=== PATIENT | female | born 1950 | race Caucasian/White ===

== ENCOUNTER → 2023-08-26 12:56 | Outpatient (CLI) | payer OTHER, SELFPAY ==
--- NOTE | 2023-08-26 16:59 | DI.RAD.S_ITS ---
PROCEDURE: XR HAND RT MIN 3V INDICATIONS: RIGHT HIP PAIN AND BOTH HAND PAIN. TECHNIQUE: 3 views of the hand(s) acquired. COMPARISON: None. FINDINGS: Bones: No fractures or dislocations. Severe degenerative changes of the 1st CMC and triscaphe joints. Severe degenerative changes of the 1st, 3rd, 4th and 5th distal interphalangeal joints with erosive changes and possible gullwing appearance. Mild degenerative changes of other interphalangeal joints. Carpal bones are normally aligned. No suspicious bony lesions. Decreased osseous mineralization. Soft tissues: No suspicious soft tissue calcifications. IMPRESSION: 1. Severe degenerative changes of the 1st CMC and triscaphe joint. 2. 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 Dictated by: Selvin Stallings M.D. on 08/26/2023 at 20:38 Approved by: Selvin Stallings M.D. on 08/26/2023 at 20:39
--- NOTE | 2023-08-26 16:59 | DI.RAD.S_ITS ---
PROCEDURE: XR HAND LT MIN 3V INDICATIONS: RIGHT HIP PAIN AND BOTH HAND PAIN TECHNIQUE: 3 views of the hand(s) acquired. COMPARISON: None. FINDINGS: Bones: No fractures or dislocations. Severe degenerative changes of the 1st carpometacarpal and triscaphe joints. Mild degenerative changes of the interphalangeal joints. Severe degenerative changes of the 5th DIP. Subchondral lucencies are seen. Carpal bones are normally aligned. No suspicious bony lesions. Soft tissues: No suspicious soft tissue calcifications. IMPRESSION: No acute fracture or dislocation. Severe degenerative changes of the 1st carpometacarpal and triscaphe joint. Mild interphalangeal joint degeneration, severe of the 5th DIP. Subchondral lucencies which may represent subchondral cystic changes versus erosive changes. 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 Dictated by: Selvin Stallings M.D. on 08/26/2023 at 20:36 Approved by: Selvin Stallings M.D. on 08/26/2023 at 20:38
--- NOTE | 2023-08-26 16:59 | DI.RAD.S_ITS ---
PROCEDURE: XR HIP W PEL IF DONE RT 2V INDICATIONS: RIGHT HIP PAIN AND BOTH HAND PAIN TECHNIQUE: AP pelvis with lateral view(s) of the right hip(s). COMPARISON: None. FINDINGS: Bones: No fractures or dislocations. Moderate degenerative changes of the bilateral hips. Degenerative changes of the visualized lower lumbar spine and pubic symphysis. Pelvic ring appears intact. No suspicious bony lesions. Soft tissues: The visualized bowel gas pattern is normal. No suspicious soft tissue calcifications. IMPRESSION: Moderate degenerative changes of the bilateral hips. No acute osseous abnormalities. Dictated by: Selvin Stallings M.D. on 08/26/2023 at 20:35 Approved by: Selvin Stallings M.D. on 08/26/2023 at 20:36
--- NOTE | 2023-08-26 16:59 | DI.RAD.S_ITS ---
PROCEDURE: XR LUMBAR SPINE 2-3V INDICATIONS: RIGHT HIP PIAN AND BOTH HAND PAIN TECHNIQUE: 3 views of the lumbar spine were acquired. COMPARISON: None. FINDINGS: Bones: 5 [id number] vertebrae are present. Grade 1 anterolisthesis of L2 on L3, L3 on L4 and grade 2 anterolisthesis of L4 on L5. Mild dextrocurvature of the lumbar spine. Decreased osseous mineralization. There is multilevel facet arthropathy, worse at L4-5 and L5-S1. Multilevel disc height loss with degenerative endplate changes and spurring is present. This is severe at L5-S1. No vertebral body compression fractures. No suspicious bony lesions. Soft tissues: Overlying bowel gas pattern is normal. No suspicious soft tissue calcifications. Atherosclerotic vascular calcifications. IMPRESSION: Multilevel degenerative changes of the lumbar spine as described above, most severe at L5-S1. Multilevel anterolisthesis. Dictated by: Selvin Stallings M.D. on 08/26/2023 at 20:33 Approved by: Selvin Stallings M.D. on 08/26/2023 at 20:35
== END ==
PROVIDERS: PCP Family Medicine; Referring Provider Family Medicine; Visit Provider Family Medicine
DX: M47.817 Spondylosis without myelopathy or radiculopathy, lumbosacral region (principal); M47.816 Spondylosis without myelopathy or radiculopathy, lumbar region; M43.16 Spondylolisthesis, lumbar region; M19.041 Primary osteoarthritis, right hand; M19.042 Primary osteoarthritis, left hand; M25.551 Pain in right hip; M54.9 Dorsalgia, unspecified; G89.29 Other chronic pain
CPT/HCPCS: 72100; 73130; 73502

== ENCOUNTER → 2023-11-10 16:04 | Outpatient (CLI) | payer OTHER, SELFPAY ==
--- NOTE | 2023-11-10 16:06 | DI.RAD.S_ITS ---
PROCEDURE: XR SACRUM COCCYX MIN 2V INDICATIONS: Fall, chronic sacral pain x1 year TECHNIQUE: 3 views of the sacrum and coccyx acquired. COMPARISON: None. FINDINGS: Bones: No fractures or dislocations. No suspicious bony lesions. Degenerative disc and facet disease involves the inferior lumbar spine. Soft tissues: Visualized bowel gas pattern is normal. No suspicious soft tissue densities. IMPRESSION: Degenerative disc and facet disease involving the lower lumbar spine; otherwise normal appearance of the sacrum. If pain persist with conservative management, consider cross-sectional imaging such as CT . Dictated by: Ken BLAS Interpreted: Vianney Harding MD on 11/10/2023 at 16:40 Transcribed by: ZEUS on 11/10/2023 at 16:41 Approved by: Vianney Harding M.D. on 11/10/2023 at 17:26
== END ==
PROVIDERS: Family Provider Family Medicine; PCP Family Medicine; Referring Provider Family Medicine; Visit Provider Family Medicine
DX: M51.36 Other intervertebral disc degeneration, lumbar region (principal); M47.816 Spondylosis without myelopathy or radiculopathy, lumbar region; M53.3 Sacrococcygeal disorders, not elsewhere classified; G89.29 Other chronic pain
CPT/HCPCS: 72220

== ENCOUNTER 2023-11-17 12:13 | Day surgery (SDC) | payer OTHER, SELFPAY ==
[2023-11-17] VITALS (7 sets, daily range): BP systolic 110–147; BP diastolic 59–82; PULSE 58–79; RESP 12–18; TEMP 36.6–36.7; O2SAT 93–97
--- NOTE | 2023-11-17 | PATH_ITS ---
[facility] Accession Number: [id number] No. of containers..01 Tissue . 01 Material submitted: . colon - SIGMOID POLYP . 01 Diagnosis: Sigmoid Colon Polyp: Colonic mucosa with prominent benign lymphoid aggregate. Negative for serrated lesion, dysplasia, or malignancy. [facility] 11/22/2023 1059 Local . 01 Electronically signed: . Cory Cervantes MD, PhD, Pathologist NPI- [id number] . 01 Gross description: . SIGMOID POLYP: Received in formalin is 1 fragment(s) of watkins, soft tissue measuring 0.3 x 0.2 x 0.1 cm submitted entirely in 1 cassette(s) /AAY 11/19/2023 0529 Local . 01 Pathologist provided ICD-10: K63.5 . 01 CPT . 565939 Specimen Comment: A courtesy copy of this report has been sent to [phone] Performed at: 01 [facility] [address] [place] [address] [address] [facility], [place], [place] [id number] MD Rigoberto Valdes MD Phone: [phone]
[2023-11-17] MEDS: LACTATED RINGERS 1,000 ML 42 ML IV (12:39)
--- NOTE | 2023-11-17 12:44 | P.HP_ITS ---
History of Present Illness History of Present Illness Date Patient Seen: 11/17/23 Time Patient Seen: 12:44 Chief complaint: Screening Colonoscopy Narrative: Dominique is a 73-year-old woman who is here for colonoscopy. Her last 1 was about 20 years ago. No family history of colon cancer. COUNT INCLUDES THE [facility] Medical History (Updated 11/17/23 @ 12:45 by Wan Perry MD) Hearing decreased Allergies Shoulder pain Chronic back pain Carpal tunnel syndrome Mumps Chicken pox Tinnitus Ovarian cyst Hemorrhoid Depression Surgical History (Updated 08/17/23 @ 18:20 by Sabrina Carlton) Anesthesia History of carpal tunnel release History of oophorectomy History of back surgery History of basal cell carcinoma Family History (Updated 08/17/23 @ 18:20 by Sabrina Carlton) Father History of heart disease Mother Cancer Social History Smoking Status: Never smoker alcohol intake: current Meds Home Medications and Allergies Home Medications Medication Instructions Recorded Confirmed Type lisinopril 10 mg tablet 10 mg PO DAILY Hpertension #90 tabs 07/06/23 11/17/23 Rx meloxicam 15 mg tablet 15 mg PO DAILY #90 tabs 07/06/23 11/17/23 Rx fluoxetine 40 mg capsule 40 mg PO DAILY 11/10/23 11/17/23 History Allergies Allergy/AdvReac Type Severity Reaction Status Date / Time No Known Drug Allergies Allergy Verified 11/17/23 12:25 Exam Vital Signs (past 8 hours): - 11/17/23 12:29 Temperature 98.0 F Pulse Rate 79 Respiratory Rate 12 Blood Pressure 133/82 Pulse Oximetry 95 Oxygen Delivery Method Room Air Oxygen Delivery Method Room Air Const Orientation: alert and awake Resp Effort & Inspection: normal respiratory effort Assessment & Plan Assessment and plan (1) Colon cancer screening: Status: Acute Plan We reviewed the risks and benefits of colonoscopy for colon cancer screening and she would like to proceed.
--- NOTE | 2023-11-17 13:31 | PM.OP.COLON ---
Operative Date/Time/Diagnoses Date of procedure: 11/17/23 Time of procedure: 13:31 Pre-op diagnosis: Colon cancer screening Post-op diagnosis: same Procedure & Clinicians Study performed: Colonoscopy Same procedure as scheduled: Yes Surgeon: Wan Perry Procedure Notes Procedure in detail: Surgeon: Wan Perry MD Anesthesia: Rancho Diaz MD Procedure: The patient was brought to the endoscopy suite, placed in left lateral decubitus position. The patient was connected to monitoring devices. A time-out was performed. Sedation was administered. Once the patient was adequately sedated, a digital rectal exam was performed and was normal. The scope was then inserted and advanced to the cecum where the appendiceal orifice was identified and photographed. The scope was then slowly withdrawn over greater than 6 minutes. The mucosa was thoroughly inspected. There were scattered sigmoid diverticula. There was a 2 mm polyp in the sigmoid colon removed with a cold snare. The scope was retroflexed in the rectum. Internal hemorrhoids were noted. The scope was straightened and removed. The patient was awakened and brought to recovery. Scope withdrawal time: 9 minutes Sedation time: 17 minutes EBL: 2 mL Findings: Scattered sigmoid diverticulosis, small sigmoid polyp and internal hemorrhoids Post-procedure Disposition: PACU
== END 2023-11-17 14:13 | disposition home or self-care (01) ==
PROVIDERS: Family Provider Family Medicine; PCP Family Medicine; Referring Provider Surgery; Visit Provider Surgery
PROC: 0DJD8ZZ Inspection of Lower Intestinal Tract, Via Natural or Artificial Opening Endoscopic (ICD-10-PCS; CPT 45378; principal; 2023-11-17 13:15)
DX: Z12.11 Encounter for screening for malignant neoplasm of colon (principal); K57.30 Diverticulosis of large intestine without perforation or abscess without bleeding; K64.8 Other hemorrhoids; K63.5 Polyp of colon
CPT/HCPCS: 45385; J2250; J2704

== ENCOUNTER 2024-01-06 13:45 | Outpatient (RCR) | payer MEDICARE, OTHER, SELFPAY ==
--- NOTE | 2023-11-07 18:23 | PT.OIE ---
Current Diagnoses Other chronic pain (11/07/23) Dorsalgia, unspecified (11/07/23) Difficulty in walking, not elsewhere classified (11/07/23) Abnormal posture (11/07/23) Weakness (11/07/23) Past Medical History (Last Updated 08/17/23 @ 18:20 by Sabrina Carlton) Allergies Carpal tunnel syndrome Chicken pox Chronic back pain Depression Hearing decreased Hemorrhoid Mumps Ovarian cyst Shoulder pain Tinnitus Past Surgical History (Last Updated 08/17/23 @ 18:20 by Sabrina Carlton) Anesthesia History of back surgery History of basal cell carcinoma History of carpal tunnel release History of oophorectomy Visit Care Team Role Provider Type Tomy Osborne MD Attending Provider Physician Family Provider Primary Care Provider Referring Provider Specialty: Family Practice Obstetrics Address: [address] [place] [address], [id number] Email: [email or web address] Physical Therapy Initial Evaluation PT-OP-A Visit Information Start: 10/26/23 10:52 Freq: Status: Active Protocol: Document 11/07/23 16:49 [facility] (Rec: 11/07/23 18:23 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 (Rec: 11/07/23 18:23 [facility] [id number]) Current Condition History of Current Condition History of Current Condition Pt reports she is having pain down legs and in back. She had a MRI recently that showed some stenosis and nerve impingment. She had one back surgery 27 years ago and another 12-15 years ago. She reports they were never had fusions. She doesn't remember what the surgeries were except to dec the stenosis. Pt report no hx of back injury. thinks may be partially hereditary. Pt reports she has been having a tingling feeling in R leg starting from R buttocks and goes into ant leg down to toes. Pt reports sliding down icy steps and fell Sep 2022. tingling and back pain has gotten worse in past 5-6 months. It keeps gradually getting worse. 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 Haven 't been able to work as much and only doing 3 days a week d /t pain. Typically works >40 hours a week. Can hardly walk down the street w/o cane. Prior to this flare up, was walking a couple miles most days. They are looking at doing surgery andbut pt wants to try PT first. Pt has had shots in the past in back but it hasn't really helped (that was prior to last surgery). Pt reports on days off, lays on L side to dec pain. Has gained weight past 2 years since loss of . Prior Treatments and Tests Xray:IMPRESSION: Multilevel degenerative changes of the lumbar spine as described above, most severe at L5-S1. Multilevel anterolisthesis. Treatment Goals Patient/Caregiver Goals Be able to walk again (go for walks, walk 2 blocks to work, do work); be able to work 40 hours a week as needed PT-OP-C Subjective Start: 10/26/23 10:52 Freq: Status: Active Protocol: Document 11/07/23 16:49 [facility] (Rec: 11/07/23 18:23 [facility] [id number]) Patient Questionnaires Oswestry Low Back Index Oswestry Score 23/50;46% OP-PT Pain Assessment Location LB Pain Location Details R SI, sacrum, buttocks to ant thigh, lower leg to toes dorsum Description Radiating,Shooting,Tingling, With Movement Frequency Frequent Pain Aggravating Factors Activity,Standing,Sitting, Walking,Lifting Other Pain Alleviating Factors L S/L PT-OP-D Balance Start: 10/26/23 10:52 Freq: Status: Active Protocol: Document 11/07/23 16:49 [facility] (Rec: 11/07/23 18:23 [facility] [id number]) Balance Tests Single Limb Standing Single Limb- Right unable to stand on RLE PT-OP-F Manual Assessment Start: 10/26/23 10:52 Freq: Status: Active Protocol: Document 11/07/23 16:49 [facility] (Rec: 11/07/23 18:23 [facility] [id number]) Manual Assessments Soft Tissue Assessment Soft Tissue Mobility Assessment R>L QL tightness & glute tightness PT-OP-J Posture/Palpation/Skin Start: 10/26/23 10:52 Freq: Status: Active Protocol: Document 11/07/23 16:49 [facility] (Rec: 11/07/23 18:23 [facility] [id number]) Posture Evaluation Comments Posture Comments rotated L; R pelvic shear, fwd flexed torso, inc kyphosis, genu recurvatum B, R iliac crest higher, equal greater trochanters PT-OP-K Range of Motion Start: 10/26/23 10:52 Freq: Status: Active Protocol: Document 11/07/23 16:49 [facility] (Rec: 11/07/23 18:23 [facility] [id number]) Lumbar Spine Range of Motion Lumbar Spine Active Percentage Flexion 5 Extension 5 Rotation Left 40 Rotation Right 40 Lateral Flexion Left 60 Lateral Flexion Right 40 Comments pain R SB & w/rot-goes down leg; pain ext PT-OP-L Special Tests Start: 10/26/23 10:52 Freq: Status: Active Protocol: Document 11/07/23 16:49 [facility] (Rec: 11/07/23 18:23 [facility] [id number]) Special Tests Lumbar Spine Special Tests Straight Leg Raise Test Results R mild tension Slump Test Results R positive Jose Miguel Test Results B positive R>L PT-OP-M Strength Start: 10/26/23 10:52 Freq: Status: Active Protocol: Document 11/07/23 16:49 [facility] (Rec: 11/07/23 18:23 [facility] [id number]) Hip Strength Hip Manual Muscle Testing Right Flexion (L2) 4- Good- External Rotation 3+ Fair+ Internal Rotation 3+ Fair+ Left Flexion (L2) 4 Good External Rotation 3+ Fair+ Internal Rotation 4- Good- Knee Strength Knee Manual Muscle Testing Right Extension (L3) 5 Normal Left Extension (L3) 5 Normal Ankle/Foot Strength Ankle and Foot Manual Muscle Testing Right Dorsiflexion (L4) 4+ Good+ Plantarflexion (S1) 4+ Good+ Left Dorsiflexion (L4) 5 Normal Plantarflexion (S1) 5 Normal Comments PF tested seated B PT-OP-Q Treatments Start: 10/26/23 10:52 Freq: Status: Active Protocol: Document 11/07/23 16:49 [facility] (Rec: 11/07/23 18:23 [facility] [id number]) Therapeutic Exercises Supine Exercises stretch Supine Exercise Name jose miguel test (knee to chest, opp knee straight) Side bilateral Reps/Minutes 30 secx2 Comments also attempted knee to opp chest but painful on R so stopped sciatic n glide Side bilateral Reps/Minutes 15 Self-Care/Home Management Treatment Education Other Education 20 min:edu on coccyx affect on dural tension, fascial tension & pain w/sitting. Set up pt on pillows w/coccyx off and pt reported relief in sitting-edu to get a cushion w /cut out for tail bone. edu on spinal anatomy and openin/ closing of foramina w/flex/ext , discussed how posture can be affecting this along w/pt pelvis position. edu how inflamation could be affecting n pain and to try icing and discussed how diet can affect this. PT-OP-T Assessment and Plan Start: 10/26/23 10:52 Freq: Status: Active Protocol: Document 11/07/23 16:49 [facility] (Rec: 11/07/23 18:23 [facility] [id number]) Physical Therapy Assessment Rehab Potential Rehabilitation Potential Good Evaluation Complexity Number of Personal Factors/Comorbidities 3 or More Number of Body Systems Impaired 4 or More Clinical Presentation at Evaluation Evolving Impairments Impairments Activity Tolerance,Balance, Functional Activities, Functional Mobility,Gait,Pain, Posture,ROM,Soft Tissue Mobility,Strength,Transfers Other Concerns Barriers to Rehabilitation pt has higher copay fo $35/ visit so will not be able to attend 2x/week. pt cont to work as needs the finances so unable to rest Goals ROM Short Term Goal (STG) Pt will report no inc difficulty/pain w/donning/ doffing shoes and socks STG Duration 12/23/23 Director Of Global Talent Goal (LTG) Pt will have at least 75% of full range of Lumbar spine mobility in order to allow greater ease in daily activityw/o inc pain LTG Duration 01/30/24 strength Short Term Goal (STG) pt will be indep w/HEP STG Duration 12/20/23 Senior Care Goal (LTG) pt will score at least 4+/5 on all BLE LE MMT and at least 3 /5 on LPM and be able to do SLS for at least 10 sec B to show improved stability to inc ease w/work and ADLs. LTG Duration 01/30/24 activities Short Term Goal (STG) Pt will be able to sit as needed and stand as needed w/o inc pain greater than 3/10 STG Duration 12/10/23 Director Of Global Talent Goal (LTG) Pt will be able to work 40 hours as needed and be able to walk for 1 mile w/o inc pain greater than 2/10. LTG Duration 01/30/24 SALOMÓN Impairment 23/50 Short Term Goal (STG) Pt will improve SALOMÓN score to no greater than 16/50 to show improved functional ability. STG Duration 12/10/23 Senior Care Goal (LTG) Pt will improve SALOMÓN score to no greater than 6/50 to show improved functional ability. LTG Duration 01/30/24 Assessment Summary Assessment Pt presents w/R SI and buttocks pain (centering at sacrum and coccyx) with referral of pain into ant thigh, vann and dorsum of foot that has pain and tingling sensations. This started about 5 months ago with cont worsening symptoms, but does have a history of LBP, with history of 2 surgeries in the past 30 years. She is only comfortable in L s/l and has inc pain w/all other positions . 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 She did have a fall about 1 year ago down steps where she fell onto her buttocks, which is likely related as pt has significant pelvic shear in standing and positive for R sided neural tension, which with pain location is indicitive of coccyx dysfunction. She is unable to stand up straight liekly related to lack of ability to ext in lumbar spine and significant R>L ant hip restrictions. Pt would benefit from skilled PT to address these deficits and dc pain. Physical Therapy Plan Frequency and Duration Frequency of Treatment 1-2x/wk Duration of treatment (weeks) 12 Plan of Care Start Date 11/07/23 Plan of Care End Date 01/30/24 Therapeutic Interventions Therapeutic Interventions Balance Training,Gait Training ,Home Exercise Program,Joint Mobilizations,Manual Therapy, Neuromuscular Re-education, Orthotic/Prosthetic Management ,Patient/Caregiver Education, Self-Care/Home Management,Soft Tissue Mobilization,Taping, Therapeutic Activities, Therapeutic Exercises Modalities Cold Pack/Ice Massage,Electric Stimulation,Hot Packs, Traction- Mechanical, Ultrasound Next Visit Focus/Plan Next Note Type Treatment Note Next Visit Plan manual: coccyx mobs, hip mobs, innominate mobs; STM to QL, ES, glutes, TFL, hip flexors ther ex: review exercises; train pelvic tilts, SL isometric flex core, supine hip ER w/band Edu: discuss anti-inflamatory diet
--- NOTE | 2023-11-07 18:23 | PT.OPPOC ---
Physical, Occupational & Speech Therapy At [facility] Current Diagnoses Other chronic pain (11/07/23) Dorsalgia, unspecified (11/07/23) Difficulty in walking, not elsewhere classified (11/07/23) Abnormal posture (11/07/23) Weakness (11/07/23) Visit Care Team Role Provider Type Tomy Osborne MD Attending Provider Physician Family Provider Primary Care Provider Referring Provider Specialty: Family Practice Obstetrics Address: [address] [place] [address], [facility] Email: [email or web address] Plan Of Care PT-OP-T Assessment and Plan Start: 10/26/23 10:52 Freq: Status: Active Protocol: Document 11/07/23 16:49 [facility] (Rec: 11/07/23 18:23 [facility] [id number]) Physical Therapy Assessment Rehab Potential Rehabilitation Potential Good Evaluation Complexity Number of Personal Factors/Comorbidities 3 or More Number of Body Systems Impaired 4 or More Clinical Presentation at Evaluation Evolving Impairments Impairments Activity Tolerance,Balance, Functional Activities, Functional Mobility,Gait,Pain, Posture,ROM,Soft Tissue Mobility,Strength,Transfers Other Concerns Barriers to Rehabilitation pt has higher copay fo $35/ visit so will not be able to attend 2x/week. pt cont to work as needs the finances so unable to rest Goals ROM Short Term Goal (STG) Pt will report no inc difficulty/pain w/donning/ doffing shoes and socks STG Duration 12/23/23 Professor Of Pathology Goal (LTG) Pt will have at least 75% of full range of Lumbar spine mobility in order to allow greater ease in daily activityw/o inc pain LTG Duration 01/30/24 strength Short Term Goal (STG) pt will be indep w/HEP STG Duration 12/20/23 Snf Goal (LTG) pt will score at least 4+/5 on all BLE LE MMT and at least 3 /5 on LPM and be able to do SLS for at least 10 sec B to show improved stability to inc ease w/work and ADLs. LTG Duration 01/30/24 activities Short Term Goal (STG) Pt will be able to sit as needed and stand as needed w/o inc pain greater than 3/10 STG Duration 12/10/23 Snf Goal (LTG) Pt will be able to work 40 hours as needed and be able to walk for 1 mile w/o inc pain greater than 2/10. LTG Duration 01/30/24 SALOMÓN Impairment 23/50 Short Term Goal (STG) Pt will improve SALOMÓN score to no greater than 16/50 to show improved functional ability. STG Duration 12/10/23 Snf Goal (LTG) Pt will improve SALOMÓN score to no greater than 6/50 to show improved functional ability. LTG Duration 01/30/24 Assessment Summary Assessment Pt presents w/R SI and buttocks pain (centering at sacrum and coccyx) with referral of pain into ant thigh, vann and dorsum of foot that has pain and tingling sensations. This started about 5 months ago with cont worsening symptoms, but does have a history of LBP, with history of 2 surgeries in the past 30 years. She is only comfortable in L s/l and has inc pain w/all other positions . 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 She did have a fall about 1 year ago down steps where she fell onto her buttocks, which is likely related as pt has significant pelvic shear in standing and positive for R sided neural tension, which with pain location is indicitive of coccyx dysfunction. She is unable to stand up straight liekly related to lack of ability to ext in lumbar spine and significant R>L ant hip restrictions. Pt would benefit from skilled PT to address these deficits and dc pain. Physical Therapy Plan Frequency and Duration Frequency of Treatment 1-2x/wk Duration of treatment (weeks) 12 Plan of Care Start Date 11/07/23 Plan of Care End Date 01/30/24 Therapeutic Interventions Therapeutic Interventions Balance Training,Gait Training ,Home Exercise Program,Joint Mobilizations,Manual Therapy, Neuromuscular Re-education, Orthotic/Prosthetic Management ,Patient/Caregiver Education, Self-Care/Home Management,Soft Tissue Mobilization,Taping, Therapeutic Activities, Therapeutic Exercises Modalities Cold Pack/Ice Massage,Electric Stimulation,Hot Packs, Traction- Mechanical, Ultrasound Next Visit Focus/Plan Next Note Type Treatment Note Next Visit Plan manual: coccyx mobs, hip mobs, innominate mobs; STM to QL, ES, glutes, TFL, hip flexors ther ex: review exercises; train pelvic tilts, SL isometric flex core, supine hip ER w/band Edu: discuss anti-inflamatory diet Plan of Care Dates Plan of Care Start Date 11/07/23 Plan of Care End Date 01/30/24 Electronically Signed by: France Quiroga, PT 11/07/23 0469 If you are in agreement with this Plan of Care, please return a signed and dated copy. I have reviewed this Plan of Care and certify that the skilled therapy services above are required to meet the patient?s needs. Physician Signature Date Printed Name and Credentials Clinical Instructor Signature Printed Name and Credentials
--- NOTE | 2023-11-10 18:09 | PT.OTN ---
Current Diagnoses Other chronic pain (11/10/23) Dorsalgia, unspecified (11/10/23) Difficulty in walking, not elsewhere classified (11/10/23) Abnormal posture (11/10/23) Weakness (11/10/23) Physical Therapy Treatment Note PT-OP-A Visit Information Start: 10/26/23 10:52 Freq: Status: Active Protocol: Document 11/10/23 16:49 [facility] (Rec: 11/10/23 18:09 [facility] [id number]) Out-Patient Physical Therapy Visit Information Visit Information Visit Type Treatment Note Visit Note 11/19 Visit Start Time 16:50 Visit Stop Time 17:45 Visit Number 2 Number of TRACK WALKER Visits 0 PT-OP-B Current Condition Start: 10/26/23 10:52 Freq: Status: Active Protocol: Document 11/07/23 16:49 [facility] (Rec: 11/07/23 18:23 [facility] [id number]) Current Condition History of Current Condition History of Current Condition Pt reports she is having pain down legs and in back. She had a MRI recently that showed some stenosis and nerve impingment. She had one back surgery 27 years ago and another 12-15 years ago. She reports they were never had fusions. She doesn't remember what the surgeries were except to dec the stenosis. Pt report no hx of back injury. thinks may be partially hereditary. Pt reports she has been having a tingling feeling in R leg starting from R buttocks and goes into ant leg down to toes. Pt reports sliding down icy steps and fell Sep 2022. tingling and back pain has gotten worse in past 5-6 months. It keeps gradually getting worse. 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 Haven 't been able to work as much and only doing 3 days a week d /t pain. Typically works >40 hours a week. Can hardly walk down the street w/o cane. Prior to this flare up, was walking a couple miles most days. They are looking at doing surgery andbut pt wants to try PT first. Pt has had shots in the past in back but it hasn't really helped (that was prior to last surgery). Pt reports on days off, lays on L side to dec pain. Has gained weight past 2 years since loss of . Prior Treatments and Tests Xray:IMPRESSION: Multilevel degenerative changes of the lumbar spine as described above, most severe at L5-S1. Multilevel anterolisthesis. Treatment Goals Patient/Caregiver Goals Be able to walk again (go for walks, walk 2 blocks to work, do work); be able to work 40 hours a week as needed PT-OP-C Subjective Start: 10/26/23 10:52 Freq: Status: Active Protocol: Document 11/07/23 16:49 [facility] (Rec: 11/07/23 18:23 [facility] [id number]) Patient Questionnaires Oswestry Low Back Index Oswestry Score 23/50;46% OP-PT Pain Assessment Location LB Pain Location Details R SI, sacrum, buttocks to ant thigh, lower leg to toes dorsum Description Radiating,Shooting,Tingling, With Movement Frequency Frequent Pain Aggravating Factors Activity,Standing,Sitting, Walking,Lifting Other Pain Alleviating Factors L S/L PT-OP-D Balance Start: 10/26/23 10:52 Freq: Status: Active Protocol: Document 11/07/23 16:49 [facility] (Rec: 11/07/23 18:23 [facility] [id number]) Balance Tests Single Limb Standing Single Limb- Right unable to stand on RLE PT-OP-F Manual Assessment Start: 10/26/23 10:52 Freq: Status: Active Protocol: Document 11/07/23 16:49 [facility] (Rec: 11/07/23 18:23 [facility] [id number]) Manual Assessments Soft Tissue Assessment Soft Tissue Mobility Assessment R>L QL tightness & glute tightness PT-OP-J Posture/Palpation/Skin Start: 10/26/23 10:52 Freq: Status: Active Protocol: Document 11/07/23 16:49 [facility] (Rec: 11/07/23 18:23 [facility] [id number]) Posture Evaluation Comments Posture Comments rotated L; R pelvic shear, fwd flexed torso, inc kyphosis, genu recurvatum B, R iliac crest higher, equal greater trochanters PT-OP-K Range of Motion Start: 10/26/23 10:52 Freq: Status: Active Protocol: Document 11/07/23 16:49 [facility] (Rec: 11/07/23 18:23 [facility] [id number]) Lumbar Spine Range of Motion Lumbar Spine Active Percentage Flexion 5 Extension 5 Rotation Left 40 Rotation Right 40 Lateral Flexion Left 60 Lateral Flexion Right 40 Comments pain R SB & w/rot-goes down leg; pain ext PT-OP-L Special Tests Start: 10/26/23 10:52 Freq: Status: Active Protocol: Document 11/07/23 16:49 [facility] (Rec: 11/07/23 18:23 [facility] [id number]) Special Tests Lumbar Spine Special Tests Straight Leg Raise Test Results R mild tension Slump Test Results R positive Jose Miguel Test Results B positive R>L PT-OP-M Strength Start: 10/26/23 10:52 Freq: Status: Active Protocol: Document 11/07/23 16:49 [facility] (Rec: 11/07/23 18:23 [facility] [id number]) Hip Strength Hip Manual Muscle Testing Right Flexion (L2) 4- Good- External Rotation 3+ Fair+ Internal Rotation 3+ Fair+ Left Flexion (L2) 4 Good External Rotation 3+ Fair+ Internal Rotation 4- Good- Knee Strength Knee Manual Muscle Testing Right Extension (L3) 5 Normal Left Extension (L3) 5 Normal Ankle/Foot Strength Ankle and Foot Manual Muscle Testing Right Dorsiflexion (L4) 4+ Good+ Plantarflexion (S1) 4+ Good+ Left Dorsiflexion (L4) 5 Normal Plantarflexion (S1) 5 Normal Comments PF tested seated B PT-OP-Q Treatments Start: 10/26/23 10:52 Freq: Status: Active Protocol: Document 11/10/23 16:49 [facility] (Rec: 11/10/23 18:09 [facility] [id number]) Therapeutic Exercises Supine Exercises isometric Supine Exercise Name SL flex isometric Side bilateral Reps/Minutes 30 sec ea pelvic tilts Reps/Minutes 10 Comments cues controlled motion stretch Supine Exercise Name jose miguel test (knee to chest, opp knee straight) Side bilateral Reps/Minutes 1 min ea sciatic n glide Side bilateral Reps/Minutes 15 Sidelying Exercises clamshells Side bilateral Reps/Minutes 15 Therapeutic Activity Therapeutic Activity log roll Reps/Minutes 5 min Comments rolling in bed and in/out of bed sleep position Reps/Minutes 4 min Comments s/l sleep position w/pillow btwn knees for support and options for partial s/l w/ props in front Manual Therapy Treatment Soft Tissue Mobilization hip flexor Body Location R iliacus Mobilization Type Sustained Pressure Intensity/Depth Moderate Body Position Supine LE Body Location ITB, TFL, VL, HS Mobilization Type Myofascial Release,Rolling Intensity/Depth Moderate Body Position Hooklying Comments w/hip IR/ER Joint Mobilizations hip Joint free the ball ER FM Body Position Hooklying PT-OP-R Modalities Start: 10/26/23 10:52 Freq: Status: Active Protocol: Document 11/10/23 16:49 [facility] (Rec: 11/10/23 18:09 [facility] [id number]) Hot Pack/Cold Pack Treatment Cold Pack Location LB and R hip Patient Position Sidelying PT-OP-T Assessment and Plan Start: 10/26/23 10:52 Freq: Status: Active Protocol: Document 11/10/23 16:49 [facility] (Rec: 11/10/23 18:09 [facility] [id number]) Physical Therapy Assessment Goals ROM Short Term Goal (STG) Pt will report no inc difficulty/pain w/donning/ doffing shoes and socks STG Duration 12/23/23 Care Home Goal (LTG) Pt will have at least 75% of full range of Lumbar spine mobility in order to allow greater ease in daily activityw/o inc pain LTG Duration 01/30/24 strength Short Term Goal (STG) pt will be indep w/HEP STG Duration 12/20/23 Selector Packer Goal (LTG) pt will score at least 4+/5 on all BLE LE MMT and at least 3 /5 on LPM and be able to do SLS for at least 10 sec B to show improved stability to inc ease w/work and ADLs. LTG Duration 01/30/24 activities Short Term Goal (STG) Pt will be able to sit as needed and stand as needed w/o inc pain greater than 3/10 STG Duration 12/10/23 Selector Packer Goal (LTG) Pt will be able to work 40 hours as needed and be able to walk for 1 mile w/o inc pain greater than 2/10. LTG Duration 01/30/24 SALOMÓN Impairment 23/50 Short Term Goal (STG) Pt will improve SALOMÓN score to no greater than 16/50 to show improved functional ability. STG Duration 12/10/23 Care Home Goal (LTG) Pt will improve SALOMÓN score to no greater than 6/50 to show improved functional ability. LTG Duration 01/30/24 Assessment Summary Assessment Pt did well with exercises w/o c/o pain today and noted much dec pain when trained on log roll mechanics for in/out of bed. She did well with HEP from last session w/min cues needed. Improved R hip ER w/ manual treatment. Physical Therapy Plan Frequency and Duration Frequency of Treatment 1-2x/wk Duration of treatment (weeks) 12 Plan of Care Start Date 11/07/23 Plan of Care End Date 01/30/24 Next Visit Focus/Plan Next Note Type Treatment Note Next Visit Plan manual: coccyx mobs, hip mobs, innominate mobs; STM to QL, ES, glutes, TFL, hip flexors & quads ther ex: review exercises: pelvic tilts, SL isometric flex core, clamshell Advance as able
--- NOTE | 2023-11-18 12:42 | PT.OTN ---
Current Diagnoses Other chronic pain (11/18/23) Dorsalgia, unspecified (11/18/23) Difficulty in walking, not elsewhere classified (11/18/23) Abnormal posture (11/18/23) Weakness (11/18/23) Physical Therapy Treatment Note PT-OP-A Visit Information Start: 10/26/23 10:52 Freq: Status: Active Protocol: Document 11/18/23 09:43 [facility] (Rec: 11/18/23 10:37 [facility] [id number]) Out-Patient Physical Therapy Visit Information Visit Information Visit Type Treatment Note Visit Note 12/17 Visit Start Time 09:45 Visit Stop Time 10:30 Visit Number 3 Number of SENIOR STAFF CONSULTANT Visits 1 PT-OP-B Current Condition Start: 10/26/23 10:52 Freq: Status: Active Protocol: Document 11/07/23 16:49 [facility] (Rec: 11/07/23 18:23 [facility] [id number]) Current Condition History of Current Condition History of Current Condition Pt reports she is having pain down legs and in back. She had a MRI recently that showed some stenosis and nerve impingment. She had one back surgery 27 years ago and another 12-15 years ago. She reports they were never had fusions. She doesn't remember what the surgeries were except to dec the stenosis. Pt report no hx of back injury. thinks may be partially hereditary. Pt reports she has been having a tingling feeling in R leg starting from R buttocks and goes into ant leg down to toes. Pt reports sliding down icy steps and fell Sep 2022. tingling and back pain has gotten worse in past 5-6 months. It keeps gradually getting worse. 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 Haven 't been able to work as much and only doing 3 days a week d /t pain. Typically works >40 hours a week. Can hardly walk down the street w/o cane. Prior to this flare up, was walking a couple miles most days. They are looking at doing surgery andbut pt wants to try PT first. Pt has had shots in the past in back but it hasn't really helped (that was prior to last surgery). Pt reports on days off, lays on L side to dec pain. Has gained weight past 2 years since loss of . Prior Treatments and Tests Xray:IMPRESSION: Multilevel degenerative changes of the lumbar spine as described above, most severe at L5-S1. Multilevel anterolisthesis. Treatment Goals Patient/Caregiver Goals Be able to walk again (go for walks, walk 2 blocks to work, do work); be able to work 40 hours a week as needed PT-OP-C Subjective Start: 10/26/23 10:52 Freq: Status: Active Protocol: Document 11/18/23 09:43 [facility] (Rec: 11/18/23 10:37 [facility] [id number]) OP-PT Subjective Patient Comments Patient Comments Dominique reports 6/10 back pain on right side which she thinks was increased by 2-day prep for colonoscopy and procedure lying on her L side yesterday. She iced her R hip Samina when her leg was really bothering her and it seemed to help. PT-OP-D Balance Start: 10/26/23 10:52 Freq: Status: Active Protocol: Document 11/07/23 16:49 [facility] (Rec: 11/07/23 18:23 [facility] [id number]) Balance Tests Single Limb Standing Single Limb- Right unable to stand on RLE PT-OP-F Manual Assessment Start: 10/26/23 10:52 Freq: Status: Active Protocol: Document 11/07/23 16:49 [facility] (Rec: 11/07/23 18:23 [facility] [id number]) Manual Assessments Soft Tissue Assessment Soft Tissue Mobility Assessment R>L QL tightness & glute tightness PT-OP-J Posture/Palpation/Skin Start: 10/26/23 10:52 Freq: Status: Active Protocol: Document 11/07/23 16:49 [facility] (Rec: 11/07/23 18:23 [facility] [id number]) Posture Evaluation Comments Posture Comments rotated L; R pelvic shear, fwd flexed torso, inc kyphosis, genu recurvatum B, R iliac crest higher, equal greater trochanters PT-OP-K Range of Motion Start: 10/26/23 10:52 Freq: Status: Active Protocol: Document 11/07/23 16:49 [facility] (Rec: 11/07/23 18:23 [facility] [id number]) Lumbar Spine Range of Motion Lumbar Spine Active Percentage Flexion 5 Extension 5 Rotation Left 40 Rotation Right 40 Lateral Flexion Left 60 Lateral Flexion Right 40 Comments pain R SB & w/rot-goes down leg; pain ext PT-OP-L Special Tests Start: 10/26/23 10:52 Freq: Status: Active Protocol: Document 11/07/23 16:49 [facility] (Rec: 11/07/23 18:23 [facility] [id number]) Special Tests Lumbar Spine Special Tests Straight Leg Raise Test Results R mild tension Slump Test Results R positive Jose Miguel Test Results B positive R>L PT-OP-M Strength Start: 10/26/23 10:52 Freq: Status: Active Protocol: Document 11/07/23 16:49 [facility] (Rec: 11/07/23 18:23 [facility] [id number]) Hip Strength Hip Manual Muscle Testing Right Flexion (L2) 4- Good- External Rotation 3+ Fair+ Internal Rotation 3+ Fair+ Left Flexion (L2) 4 Good External Rotation 3+ Fair+ Internal Rotation 4- Good- Knee Strength Knee Manual Muscle Testing Right Extension (L3) 5 Normal Left Extension (L3) 5 Normal Ankle/Foot Strength Ankle and Foot Manual Muscle Testing Right Dorsiflexion (L4) 4+ Good+ Plantarflexion (S1) 4+ Good+ Left Dorsiflexion (L4) 5 Normal Plantarflexion (S1) 5 Normal Comments PF tested seated B PT-OP-Q Treatments Start: 10/26/23 10:52 Freq: Status: Active Protocol: Document 11/18/23 09:43 [facility] (Rec: 11/18/23 10:37 [facility] [id number]) Therapeutic Exercises Supine Exercises isometric Supine Exercise Name SL flex isometric Side bilateral Reps/Minutes 30 sec ea pelvic tilts Reps/Minutes 10 Comments cues controlled motion stretch Supine Exercise Name jose miguel test (knee to chest, opp knee straight) Side bilateral Reps/Minutes 1 min ea sciatic n glide Side bilateral Reps/Minutes 15 Sidelying Exercises clamshells Side bilateral Equipment Used pt self-monitoring hip, breathwork for slower pacing Reps/Minutes 15 Comments initial tactile cues for excessive pelvic rocking Manual Therapy Treatment Soft Tissue Mobilization hip flexor Body Location R iliacus Mobilization Type Sustained Pressure Intensity/Depth Moderate Body Position Supine LE Body Location ITB, TFL, VL, HS Mobilization Type Instrument Assisted,Myofascial Release,Rolling Intensity/Depth Moderate Body Position Hooklying Comments w/hip IR/ER - not today rolling pin to TFL, ITB PT-OP-R Modalities Start: 10/26/23 10:52 Freq: Status: Active Protocol: Document 11/18/23 09:43 [facility] (Rec: 11/18/23 12:42 [facility] [id number]) Hot Pack/Cold Pack Treatment Hot Pack Location lumbar Patient Position Hooklying Patient Tolerance Good Comments GRETA walls PT-OP-T Assessment and Plan Start: 10/26/23 10:52 Freq: Status: Active Protocol: Document 11/18/23 09:43 [facility] (Rec: 11/18/23 10:37 [facility] [id number]) Physical Therapy Assessment Goals ROM Short Term Goal (STG) Pt will report no inc difficulty/pain w/donning/ doffing shoes and socks STG Duration 12/23/23 Correction Goal (LTG) Pt will have at least 75% of full range of Lumbar spine mobility in order to allow greater ease in daily activityw/o inc pain LTG Duration 01/30/24 strength Short Term Goal (STG) pt will be indep w/HEP STG Duration 12/20/23 Correction Goal (LTG) pt will score at least 4+/5 on all BLE LE MMT and at least 3 /5 on LPM and be able to do SLS for at least 10 sec B to show improved stability to inc ease w/work and ADLs. LTG Duration 01/30/24 activities Short Term Goal (STG) Pt will be able to sit as needed and stand as needed w/o inc pain greater than 3/10 STG Duration 12/10/23 Correction Goal (LTG) Pt will be able to work 40 hours as needed and be able to walk for 1 mile w/o inc pain greater than 2/10. LTG Duration 01/30/24 SALOMÓN Impairment 23/50 Short Term Goal (STG) Pt will improve SALOMÓN score to no greater than 16/50 to show improved functional ability. STG Duration 12/10/23 Data Conversion Operator Goal (LTG) Pt will improve SALOMÓN score to no greater than 6/50 to show improved functional ability. LTG Duration 01/30/24 Assessment Summary Assessment Dominique requires cues for gentle pain-free range of motion and demonstrates improved pain-free ROM after initial cueing and repetition not to push into pain. Her 6/ 10 pain level SOS decreased EOS to 4/10 back, 3/10 R leg. Physical Therapy Plan Frequency and Duration Frequency of Treatment 1-2x/wk Duration of treatment (weeks) 12 Plan of Care Start Date 11/07/23 Plan of Care End Date 01/30/24 Therapeutic Interventions Therapeutic Interventions Balance Training,Gait Training ,Home Exercise Program,Joint Mobilizations,Manual Therapy, Neuromuscular Re-education, Orthotic/Prosthetic Management ,Patient/Caregiver Education, Self-Care/Home Management,Soft Tissue Mobilization,Taping, Therapeutic Activities, Therapeutic Exercises Modalities Cold Pack/Ice Massage,Electric Stimulation,Hot Packs, Traction- Mechanical, Ultrasound Next Visit Focus/Plan Next Note Type Treatment Note Next Visit Plan Consider adding self-STM w/ rolling pin to HEP. POC: manual: coccyx mobs, hip mobs, innominate mobs; STM to QL, ES, glutes, TFL, hip flexors & quads ther ex: review exercises: pelvic tilts, SL isometric flex core, clamshell Advance as able
--- NOTE | 2023-12-09 15:30 | PT.OTN ---
Current Diagnoses Other chronic pain (12/09/23) Dorsalgia, unspecified (12/09/23) Difficulty in walking, not elsewhere classified (12/09/23) Abnormal posture (12/09/23) Weakness (12/09/23) Physical Therapy Treatment Note PT-OP-A Visit Information Start: 10/26/23 10:52 Freq: Status: Active Protocol: Document 12/09/23 13:50 N[facility] (Rec: 12/09/23 16:45 NB [id number]) Out-Patient Physical Therapy Visit Information Visit Information Visit Type Treatment Note Visit Note 01/17 Visit Start Time 13:50 Visit Stop Time 14:38 Visit Number 4 Number of DENSITY CONTROL PUNCHER Visits 2 PT-OP-B Current Condition Start: 10/26/23 10:52 Freq: Status: Active Protocol: Document 11/07/23 16:49 [facility] (Rec: 11/07/23 18:23 [facility] [id number]) Current Condition History of Current Condition History of Current Condition Pt reports she is having pain down legs and in back. She had a MRI recently that showed some stenosis and nerve impingment. She had one back surgery 27 years ago and another 12-15 years ago. She reports they were never had fusions. She doesn't remember what the surgeries were except to dec the stenosis. Pt report no hx of back injury. thinks may be partially hereditary. Pt reports she has been having a tingling feeling in R leg starting from R buttocks and goes into ant leg down to toes. Pt reports sliding down icy steps and fell Sep 2022. tingling and back pain has gotten worse in past 5-6 months. It keeps gradually getting worse. 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 Haven 't been able to work as much and only doing 3 days a week d /t pain. Typically works >40 hours a week. Can hardly walk down the street w/o cane. Prior to this flare up, was walking a couple miles most days. They are looking at doing surgery andbut pt wants to try PT first. Pt has had shots in the past in back but it hasn't really helped (that was prior to last surgery). Pt reports on days off, lays on L side to dec pain. Has gained weight past 2 years since loss of . Prior Treatments and Tests Xray:IMPRESSION: Multilevel degenerative changes of the lumbar spine as described above, most severe at L5-S1. Multilevel anterolisthesis. Treatment Goals Patient/Caregiver Goals Be able to walk again (go for walks, walk 2 blocks to work, do work); be able to work 40 hours a week as needed PT-OP-C Subjective Start: 10/26/23 10:52 Freq: Status: Active Protocol: Document 12/09/23 13:50 [facility] (Rec: 12/09/23 16:45 NBM [id number]) OP-PT Subjective Patient Comments Patient Comments Dominique reports she's feeling well. On Tuesday she had a basal cell procedure on her R cheek and then stitches yesterday. She gets bandage off in a week. She always uses log roll method and sleeps on side with pillow supports with no issues. PT-OP-D Balance Start: 10/26/23 10:52 Freq: Status: Active Protocol: Document 11/07/23 16:49 [facility] (Rec: 11/07/23 18:23 [facility] [id number]) Balance Tests Single Limb Standing Single Limb- Right unable to stand on RLE PT-OP-F Manual Assessment Start: 10/26/23 10:52 Freq: Status: Active Protocol: Document 11/07/23 16:49 [facility] (Rec: 11/07/23 18:23 [facility] [id number]) Manual Assessments Soft Tissue Assessment Soft Tissue Mobility Assessment R>L QL tightness & glute tightness PT-OP-J Posture/Palpation/Skin Start: 10/26/23 10:52 Freq: Status: Active Protocol: Document 11/07/23 16:49 [facility] (Rec: 11/07/23 18:23 [facility] [id number]) Posture Evaluation Comments Posture Comments rotated L; R pelvic shear, fwd flexed torso, inc kyphosis, genu recurvatum B, R iliac crest higher, equal greater trochanters PT-OP-K Range of Motion Start: 10/26/23 10:52 Freq: Status: Active Protocol: Document 11/07/23 16:49 [facility] (Rec: 11/07/23 18:23 [facility] [id number]) Lumbar Spine Range of Motion Lumbar Spine Active Percentage Flexion 5 Extension 5 Rotation Left 40 Rotation Right 40 Lateral Flexion Left 60 Lateral Flexion Right 40 Comments pain R SB & w/rot-goes down leg; pain ext PT-OP-L Special Tests Start: 10/26/23 10:52 Freq: Status: Active Protocol: Document 11/07/23 16:49 [facility] (Rec: 11/07/23 18:23 [facility] [id number]) Special Tests Lumbar Spine Special Tests Straight Leg Raise Test Results R mild tension Slump Test Results R positive Jose Miguel Test Results B positive R>L PT-OP-M Strength Start: 10/26/23 10:52 Freq: Status: Active Protocol: Document 11/07/23 16:49 [facility] (Rec: 11/07/23 18:23 [facility] [id number]) Hip Strength Hip Manual Muscle Testing Right Flexion (L2) 4- Good- External Rotation 3+ Fair+ Internal Rotation 3+ Fair+ Left Flexion (L2) 4 Good External Rotation 3+ Fair+ Internal Rotation 4- Good- Knee Strength Knee Manual Muscle Testing Right Extension (L3) 5 Normal Left Extension (L3) 5 Normal Ankle/Foot Strength Ankle and Foot Manual Muscle Testing Right Dorsiflexion (L4) 4+ Good+ Plantarflexion (S1) 4+ Good+ Left Dorsiflexion (L4) 5 Normal Plantarflexion (S1) 5 Normal Comments PF tested seated B PT-OP-Q Treatments Start: 10/26/23 10:52 Freq: Status: Active Protocol: Document 12/09/23 13:50 [facility] (Rec: 12/09/23 16:45 [facility] [id number]) Therapeutic Exercises Supine Exercises isometric Supine Exercise Name SL flex isometric Side bilateral Reps/Minutes 2x30 sec ea pelvic tilts Supine Exercise Name w/ TrA Reps/Minutes x20 AROM, x10 w/ 2 breath cycle hold. Comments cues controlled motion and breathwork. stretch Supine Exercise Name jose miguel test (knee to chest, opp knee straight) Side bilateral Reps/Minutes 1 min ea Comments grasp back of thigh instead of knee, increase hold time. sciatic n glide Side bilateral Reps/Minutes 20 Sidelying Exercises reverse clamshells Side bilateral Equipment Used pillow support for LE alignment Reps/Minutes x15ea clamshells Sidelying Exercise Name 1. wo band 2. w/ band Side bilateral Resistance Lvl 1 Tb Equipment Used pt self-monitoring hip, breathwork for slower pacing Reps/Minutes x15 ea Comments tactile cues for excessive pelvic rocking w/ resistance Manual Therapy Treatment Soft Tissue Mobilization LE Body Location ITB, TFL, VL, HS Mobilization Type Instrument Assisted,Myofascial Release,Rolling Intensity/Depth Moderate Body Position Hooklying Comments w/hip IR/ER - not today rolling pin to TFL, ITB PT-OP-R Modalities Start: 10/26/23 10:52 Freq: Status: Active Protocol: Document 12/09/23 13:50 [facility] (Rec: 12/09/23 16:45 [facility] [id number]) Hot Pack/Cold Pack Treatment Hot Pack Location lumbar/ R hip Patient Position Sidelying Patient Tolerance Good Comments LE devinster PT-OP-T Assessment and Plan Start: 10/26/23 10:52 Freq: Status: Active Protocol: Document 12/09/23 13:50 [facility] (Rec: 12/09/23 16:45 [facility] [id number]) Physical Therapy Assessment Goals ROM Short Term Goal (STG) Pt will report no inc difficulty/pain w/donning/ doffing shoes and socks 12/09/23: Pt reports no difficulty putting on shoes/ socks STG Duration 12/23/23 - GOAL MET 12/09/23 Senior Care Goal (LTG) Pt will have at least 75% of full range of Lumbar spine mobility in order to allow greater ease in daily activityw/o inc pain LTG Duration 01/30/24 strength Short Term Goal (STG) pt will be indep w/HEP STG Duration 12/20/23 Electrical Logger Goal (LTG) pt will score at least 4+/5 on all BLE LE MMT and at least 3 /5 on LPM and be able to do SLS for at least 10 sec B to show improved stability to inc ease w/work and ADLs. LTG Duration 01/30/24 activities Short Term Goal (STG) Pt will be able to sit as needed and stand as needed w/o inc pain greater than 3/10 STG Duration 12/10/23 Electrical Logger Goal (LTG) Pt will be able to work 40 hours as needed and be able to walk for 1 mile w/o inc pain greater than 2/10. 12/09/23: Pt uses SPC to walk to /from work 2.5 blocks as weather permits without increased pain, but unable to walk 1 mi. LTG Duration 01/30/24 SALOMÓN Impairment 23/50 Short Term Goal (STG) Pt will improve SALOMÓN score to no greater than 16/50 to show improved functional ability. STG Duration 12/10/23 Senior Care Goal (LTG) Pt will improve SALOMÓN score to no greater than 6/50 to show improved functional ability. LTG Duration 01/30/24 Assessment Summary Assessment Treatment focus on core using PPT w/Transverse abdominis activation and breath instead of breathholding. Pt instructed in self-STM using rolling pin to R TFL and ITB w / positive feedback response. Physical Therapy Plan Frequency and Duration Frequency of Treatment 1-2x/wk Duration of treatment (weeks) 12 Plan of Care Start Date 11/07/23 Plan of Care End Date 01/30/24 Therapeutic Interventions Therapeutic Interventions Balance Training,Gait Training ,Home Exercise Program,Joint Mobilizations,Manual Therapy, Neuromuscular Re-education, Orthotic/Prosthetic Management ,Patient/Caregiver Education, Self-Care/Home Management,Soft Tissue Mobilization,Taping, Therapeutic Activities, Therapeutic Exercises Modalities Cold Pack/Ice Massage,Electric Stimulation,Hot Packs, Traction- Mechanical, Ultrasound Next Visit Focus/Plan Next Note Type Treatment Note Next Visit Plan Consider adding self-STM w/ rolling pin to HEP. POC: manual: coccyx mobs, hip mobs, innominate mobs; STM to QL, ES, glutes, TFL, hip flexors & quads ther ex: review exercises: pelvic tilts, SL isometric flex core, clamshell Advance as able
--- NOTE | 2023-12-15 17:49 | PT.OTN ---
Current Diagnoses Other chronic pain (12/15/23) Dorsalgia, unspecified (12/15/23) Difficulty in walking, not elsewhere classified (12/15/23) Abnormal posture (12/15/23) Weakness (12/15/23) Physical Therapy Treatment Note PT-OP-A Visit Information Start: 10/26/23 10:52 Freq: Status: Active Protocol: Document 12/15/23 13:52 [facility] (Rec: 12/15/23 17:49 [facility] [id number]) Out-Patient Physical Therapy Visit Information Visit Information Visit Type Treatment Note Visit Note 02/16 Visit Start Time 13:52 Visit Stop Time 14:47 Visit Number 5 Number of CLINICAL RESEARCH COORDINATOR Visits 0 PT-OP-B Current Condition Start: 10/26/23 10:52 Freq: Status: Active Protocol: Document 11/07/23 16:49 [facility] (Rec: 11/07/23 18:23 [facility] [id number]) Current Condition History of Current Condition History of Current Condition Pt reports she is having pain down legs and in back. She had a MRI recently that showed some stenosis and nerve impingment. She had one back surgery 27 years ago and another 12-15 years ago. She reports they were never had fusions. She doesn't remember what the surgeries were except to dec the stenosis. Pt report no hx of back injury. thinks may be partially hereditary. Pt reports she has been having a tingling feeling in R leg starting from R buttocks and goes into ant leg down to toes. Pt reports sliding down icy steps and fell Sep 2022. tingling and back pain has gotten worse in past 5-6 months. It keeps gradually getting worse. 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 Haven 't been able to work as much and only doing 3 days a week d /t pain. Typically works >40 hours a week. Can hardly walk down the street w/o cane. Prior to this flare up, was walking a couple miles most days. They are looking at doing surgery andbut pt wants to try PT first. Pt has had shots in the past in back but it hasn't really helped (that was prior to last surgery). Pt reports on days off, lays on L side to dec pain. Has gained weight past 2 years since loss of . Prior Treatments and Tests Xray:IMPRESSION: Multilevel degenerative changes of the lumbar spine as described above, most severe at L5-S1. Multilevel anterolisthesis. Treatment Goals Patient/Caregiver Goals Be able to walk again (go for walks, walk 2 blocks to work, do work); be able to work 40 hours a week as needed PT-OP-C Subjective Start: 10/26/23 10:52 Freq: Status: Active Protocol: Document 12/15/23 13:52 [facility] (Rec: 12/15/23 17:49 [facility] [id number]) OP-PT Subjective Patient Comments Patient Comments Repots she feels like the rolling pin work really hurts and lasts as painful. Pt reports some days she can walk really well. the last few days, she has had tingling in her R lower leg. Reports PHILLIPS today and some dizziness but took excedrin and it has helped. no other symptoms PT-OP-D Balance Start: 10/26/23 10:52 Freq: Status: Active Protocol: Document 11/07/23 16:49 [facility] (Rec: 11/07/23 18:23 [facility] [id number]) Balance Tests Single Limb Standing Single Limb- Right unable to stand on RLE PT-OP-F Manual Assessment Start: 10/26/23 10:52 Freq: Status: Active Protocol: Document 11/07/23 16:49 [facility] (Rec: 11/07/23 18:23 [facility] [id number]) Manual Assessments Soft Tissue Assessment Soft Tissue Mobility Assessment R>L QL tightness & glute tightness PT-OP-J Posture/Palpation/Skin Start: 10/26/23 10:52 Freq: Status: Active Protocol: Document 11/07/23 16:49 [facility] (Rec: 11/07/23 18:23 [facility] [id number]) Posture Evaluation Comments Posture Comments rotated L; R pelvic shear, fwd flexed torso, inc kyphosis, genu recurvatum B, R iliac crest higher, equal greater trochanters PT-OP-K Range of Motion Start: 10/26/23 10:52 Freq: Status: Active Protocol: Document 11/07/23 16:49 [facility] (Rec: 11/07/23 18:23 [facility] [id number]) Lumbar Spine Range of Motion Lumbar Spine Active Percentage Flexion 5 Extension 5 Rotation Left 40 Rotation Right 40 Lateral Flexion Left 60 Lateral Flexion Right 40 Comments pain R SB & w/rot-goes down leg; pain ext PT-OP-L Special Tests Start: 10/26/23 10:52 Freq: Status: Active Protocol: Document 11/07/23 16:49 [facility] (Rec: 11/07/23 18:23 [facility] [id number]) Special Tests Lumbar Spine Special Tests Straight Leg Raise Test Results R mild tension Slump Test Results R positive Jose Miguel Test Results B positive R>L PT-OP-M Strength Start: 10/26/23 10:52 Freq: Status: Active Protocol: Document 11/07/23 16:49 [facility] (Rec: 11/07/23 18:23 [facility] [id number]) Hip Strength Hip Manual Muscle Testing Right Flexion (L2) 4- Good- External Rotation 3+ Fair+ Internal Rotation 3+ Fair+ Left Flexion (L2) 4 Good External Rotation 3+ Fair+ Internal Rotation 4- Good- Knee Strength Knee Manual Muscle Testing Right Extension (L3) 5 Normal Left Extension (L3) 5 Normal Ankle/Foot Strength Ankle and Foot Manual Muscle Testing Right Dorsiflexion (L4) 4+ Good+ Plantarflexion (S1) 4+ Good+ Left Dorsiflexion (L4) 5 Normal Plantarflexion (S1) 5 Normal Comments PF tested seated B PT-OP-Q Treatments Start: 10/26/23 10:52 Freq: Status: Active Protocol: Document 12/15/23 13:52 [facility] (Rec: 12/15/23 17:49 [facility] [id number]) Therapeutic Exercises Supine Exercises isometric Supine Exercise Name SL flex isometric Side bilateral Reps/Minutes x30 sec ea Comments min cues pelvic tilts Reps/Minutes 10 Comments min cues needed stretch Supine Exercise Name jose miguel test (knee to chest, opp knee straight) Side bilateral Reps/Minutes 1 min ea Comments grasp back of thigh instead of knee sciatic n glide Side bilateral Reps/Minutes 15 Sidelying Exercises reverse clamshells Side bilateral Equipment Used pillow support for LE alignment Reps/Minutes x15ea clamshells Sidelying Exercise Name 1. wo band 2. w/ band Side bilateral Resistance Lvl 1 Tb Reps/Minutes x15 ea Comments min cues for pelvis Manual Therapy Treatment Soft Tissue Mobilization glutes Body Location R sup Mobilization Type Rolling Intensity/Depth Moderate Body Position Sidelying lumbar Body Location B ES, R QL Mobilization Type Rolling Intensity/Depth Moderate Body Position Sidelying Joint Mobilizations innominate Joint L IR FM Body Position Sidelying Self-Care/Home Management Treatment Education Other Education 130/61 66 HR PT-OP-R Modalities Start: 10/26/23 10:52 Freq: Status: Active Protocol: Document 12/15/23 13:52 [facility] (Rec: 12/15/23 17:49 [facility] [id number]) Hot Pack/Cold Pack Treatment Hot Pack Location lumbar/ R hip Patient Position Sidelying Patient Tolerance Good PT-OP-T Assessment and Plan Start: 10/26/23 10:52 Freq: Status: Active Protocol: Document 12/15/23 13:52 [facility] (Rec: 12/15/23 17:49 [facility] [id number]) Physical Therapy Assessment Goals ROM Short Term Goal (STG) Pt will report no inc difficulty/pain w/donning/ doffing shoes and socks 12/09/23: Pt reports no difficulty putting on shoes/ socks STG Duration 12/23/23 - GOAL MET 12/09/23 [facility] Goal (LTG) Pt will have at least 75% of full range of Lumbar spine mobility in order to allow greater ease in daily activityw/o inc pain LTG Duration 01/30/24 strength Short Term Goal (STG) pt will be indep w/HEP STG Duration 12/20/23 Buffing And Sueding Machine Operator Goal (LTG) pt will score at least 4+/5 on all BLE LE MMT and at least 3 /5 on LPM and be able to do SLS for at least 10 sec B to show improved stability to inc ease w/work and ADLs. LTG Duration 01/30/24 activities Short Term Goal (STG) Pt will be able to sit as needed and stand as needed w/o inc pain greater than 3/10 STG Duration 12/10/23 Buffing And Sueding Machine Operator Goal (LTG) Pt will be able to work 40 hours as needed and be able to walk for 1 mile w/o inc pain greater than 2/10. 12/09/23: Pt uses SPC to walk to /from work 2.5 blocks as weather permits without increased pain, but unable to walk 1 mi. LTG Duration 01/30/24 SALOMÓN Impairment 23/50 Short Term Goal (STG) Pt will improve SALOMÓN score to no greater than 16/50 to show improved functional ability. STG Duration 12/10/23 Buffing And Sueding Machine Operator Goal (LTG) Pt will improve SALOMÓN score to no greater than 6/50 to show improved functional ability. LTG Duration 01/30/24 Assessment Summary Assessment Pt showed improvement today in movement with more fluid transfers. Denied dizziness at tend of session. Pt informed to go to ER if dizziness or PHILLIPS resumes. Less cues needed today. Physical Therapy Plan Frequency and Duration Frequency of Treatment 1-2x/wk Duration of treatment (weeks) 12 Plan of Care Start Date 11/07/23 Plan of Care End Date 01/30/24 Next Visit Focus/Plan Next Note Type Treatment Note Next Visit Plan Avoid rolling pin d/t pt inc pain; advance core work, try hip stretches manual: coccyx mobs, hip mobs, innominate mobs; STM to QL, ES, glutes, TFL, hip flexors & quads
--- NOTE | 2023-12-30 16:23 | PT.OTN ---
Current Diagnoses Other chronic pain (12/30/23) Dorsalgia, unspecified (12/30/23) Difficulty in walking, not elsewhere classified (12/30/23) Abnormal posture (12/30/23) Weakness (12/30/23) Physical Therapy Treatment Note PT-OP-A Visit Information Start: 10/26/23 10:52 Freq: Status: Active Protocol: Document 12/30/23 12:57 AB (Rec: 12/30/23 16:23 AB [id number]) Out-Patient Physical Therapy Visit Information Visit Information Visit Type Treatment Note Visit Note 03/19 : [id number] Visit Start Time 15:18 Visit Stop Time 16:00 Visit Number 6 Number of CENTRAL OFFICE EQUIPMENT INSTALLER Visits 1 PT-OP-B Current Condition Start: 10/26/23 10:52 Freq: Status: Active Protocol: Document 11/07/23 16:49 [facility] (Rec: 11/07/23 18:23 [facility] [id number]) Current Condition History of Current Condition History of Current Condition Pt reports she is having pain down legs and in back. She had a MRI recently that showed some stenosis and nerve impingment. She had one back surgery 27 years ago and another 12-15 years ago. She reports they were never had fusions. She doesn't remember what the surgeries were except to dec the stenosis. Pt report no hx of back injury. thinks may be partially hereditary. Pt reports she has been having a tingling feeling in R leg starting from R buttocks and goes into ant leg down to toes. Pt reports sliding down icy steps and fell Sep 2022. tingling and back pain has gotten worse in past 5-6 months. It keeps gradually getting worse. 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 Haven 't been able to work as much and only doing 3 days a week d /t pain. Typically works >40 hours a week. Can hardly walk down the street w/o cane. Prior to this flare up, was walking a couple miles most days. They are looking at doing surgery andbut pt wants to try PT first. Pt has had shots in the past in back but it hasn't really helped (that was prior to last surgery). Pt reports on days off, lays on L side to dec pain. Has gained weight past 2 years since loss of . Prior Treatments and Tests Xray:IMPRESSION: Multilevel degenerative changes of the lumbar spine as described above, most severe at L5-S1. Multilevel anterolisthesis. Treatment Goals Patient/Caregiver Goals Be able to walk again (go for walks, walk 2 blocks to work, do work); be able to work 40 hours a week as needed PT-OP-C Subjective Start: 10/26/23 10:52 Freq: Status: Active Protocol: Document 12/30/23 12:57 AB (Rec: 12/30/23 16:23 AB [id number]) OP-PT Subjective Patient Comments Patient Comments Patient reports she is better, reports she does not have constant pain today. PT-OP-D Balance Start: 10/26/23 10:52 Freq: Status: Active Protocol: Document 11/07/23 16:49 [facility] (Rec: 11/07/23 18:23 [facility] [id number]) Balance Tests Single Limb Standing Single Limb- Right unable to stand on RLE PT-OP-F Manual Assessment Start: 10/26/23 10:52 Freq: Status: Active Protocol: Document 11/07/23 16:49 [facility] (Rec: 11/07/23 18:23 [facility] [id number]) Manual Assessments Soft Tissue Assessment Soft Tissue Mobility Assessment R>L QL tightness & glute tightness PT-OP-J Posture/Palpation/Skin Start: 10/26/23 10:52 Freq: Status: Active Protocol: Document 11/07/23 16:49 [facility] (Rec: 11/07/23 18:23 [facility] [id number]) Posture Evaluation Comments Posture Comments rotated L; R pelvic shear, fwd flexed torso, inc kyphosis, genu recurvatum B, R iliac crest higher, equal greater trochanters PT-OP-K Range of Motion Start: 10/26/23 10:52 Freq: Status: Active Protocol: Document 11/07/23 16:49 [facility] (Rec: 11/07/23 18:23 [facility] [id number]) Lumbar Spine Range of Motion Lumbar Spine Active Percentage Flexion 5 Extension 5 Rotation Left 40 Rotation Right 40 Lateral Flexion Left 60 Lateral Flexion Right 40 Comments pain R SB & w/rot-goes down leg; pain ext PT-OP-L Special Tests Start: 10/26/23 10:52 Freq: Status: Active Protocol: Document 11/07/23 16:49 [facility] (Rec: 11/07/23 18:23 [facility] [id number]) Special Tests Lumbar Spine Special Tests Straight Leg Raise Test Results R mild tension Slump Test Results R positive Jose Miguel Test Results B positive R>L PT-OP-M Strength Start: 10/26/23 10:52 Freq: Status: Active Protocol: Document 11/07/23 16:49 [facility] (Rec: 11/07/23 18:23 [facility] [id number]) Hip Strength Hip Manual Muscle Testing Right Flexion (L2) 4- Good- External Rotation 3+ Fair+ Internal Rotation 3+ Fair+ Left Flexion (L2) 4 Good External Rotation 3+ Fair+ Internal Rotation 4- Good- Knee Strength Knee Manual Muscle Testing Right Extension (L3) 5 Normal Left Extension (L3) 5 Normal Ankle/Foot Strength Ankle and Foot Manual Muscle Testing Right Dorsiflexion (L4) 4+ Good+ Plantarflexion (S1) 4+ Good+ Left Dorsiflexion (L4) 5 Normal Plantarflexion (S1) 5 Normal Comments PF tested seated B PT-OP-Q Treatments Start: 10/26/23 10:52 Freq: Status: Active Protocol: Document 12/30/23 12:57 AB (Rec: 12/30/23 16:23 AB [id number]) Therapeutic Exercises Supine Exercises hip flexor stretch edge of bed Supine Exercise Name from hooklying Reps/Minutes 60 seconds Comments with AROM knee flexon right LE , VC for breathing from diaphragm isometric Supine Exercise Name SL flex isometric Side bilateral Reps/Minutes x30 sec ea Comments min cues Sitting Exercises seated hip abduction with band Side bilateral Equipment Used light blue band Reps/Minutes one one minute hold then X 16 without hold Comments Pt ed rationale of one minute hold for activation Standing Exercises mini squat with band Side bilateral Resistance level one light blue band Reps/Minutes 2 Comments not jovani, right hip pain with return to fully upright sit to stand with band Side bilateral Resistance light blue level one band Reps/Minutes 1 Comments not jovani standing hip extension Side bilateral Reps/Minutes X15 Comments leaning over mat at counter height, verbal and visual cues Therapeutic Activity Therapeutic Activity log roll Comments Verbal cues to scoot back in sitting, transfer to sidelying and rest a moment prior to rolling. Verbal cues to roll fully onto side prior to sitting upright. Performed throughout session during transitions. Manual Therapy Treatment Soft Tissue Mobilization right quad Body Location areas of increased density decreased tissue mobility Mobilization Type Cross-Friction,Rolling Intensity/Depth Moderate Body Position Hooklying bilateral hip flexors at groin Mobilization Type Cross-Friction Intensity/Depth Moderate Body Position Hooklying bilateral gluteal muscles/piriformis Mobilization Type Cross-Friction,Rolling Intensity/Depth Moderate Body Position Sidelying glutes Body Location R sup Mobilization Type Rolling Intensity/Depth Moderate Body Position Sidelying hip flexor Body Location R iliacus Mobilization Type Sustained Pressure Intensity/Depth Moderate Body Position Supine Manual Techniques MET for right AI left PI and pubic shotgun Body Location SI Body Position Hooklying Reps/Duration 6X6 seconds each Comments verbal cues and assist Self-Care/Home Management Treatment Activities Self-Care/Home Management Activities hip extension AROM leaning over plinth and seated hip abduction with band with one minute hold added to HEP PT-OP-R Modalities Start: 10/26/23 10:52 Freq: Status: Active Protocol: Document 12/15/23 13:52 [facility] (Rec: 12/15/23 17:49 [facility] [id number]) Hot Pack/Cold Pack Treatment Hot Pack Location lumbar/ R hip Patient Position Sidelying Patient Tolerance Good PT-OP-T Assessment and Plan Start: 10/26/23 10:52 Freq: Status: Active Protocol: Document 12/30/23 12:57 AB (Rec: 12/30/23 16:23 AB [id number]) Physical Therapy Assessment Goals ROM Short Term Goal (STG) Pt will report no inc difficulty/pain w/donning/ doffing shoes and socks 12/09/23: Pt reports no difficulty putting on shoes/ socks STG Duration 12/23/23 - GOAL MET 12/09/23 Prison Goal (LTG) Pt will have at least 75% of full range of Lumbar spine mobility in order to allow greater ease in daily activityw/o inc pain LTG Duration 01/30/24 strength Short Term Goal (STG) pt will be indep w/HEP STG Duration 12/20/23 Prison Goal (LTG) pt will score at least 4+/5 on all BLE LE MMT and at least 3 /5 on LPM and be able to do SLS for at least 10 sec B to show improved stability to inc ease w/work and ADLs. LTG Duration 01/30/24 activities Short Term Goal (STG) Pt will be able to sit as needed and stand as needed w/o inc pain greater than 3/10 STG Duration 12/10/23 Director Of Strategic Partnerships Goal (LTG) Pt will be able to work 40 hours as needed and be able to walk for 1 mile w/o inc pain greater than 2/10. 12/09/23: Pt uses SPC to walk to /from work 2.5 blocks as weather permits without increased pain, but unable to walk 1 mi. LTG Duration 01/30/24 SALOMÓN Impairment 23/50 Short Term Goal (STG) Pt will improve SALOMÓN score to no greater than 16/50 to show improved functional ability. STG Duration 12/10/23 Prison Goal (LTG) Pt will improve SALOMÓN score to no greater than 6/50 to show improved functional ability. LTG Duration 01/30/24 Assessment Summary Assessment Dominique reports pain is the same end of session ambulating out of session with SPC. Right LE stiffness likely limiting jovani to sit to stand and squats. Physical Therapy Plan Frequency and Duration Frequency of Treatment 1-2x/wk Duration of treatment (weeks) 12 Plan of Care Start Date 11/07/23 Plan of Care End Date 01/30/24 Next Visit Focus/Plan Next Note Type Treatment Note Next Visit Plan Avoid rolling pin d/t pt inc pain; advance core work, try hip stretches manual: coccyx mobs, hip mobs, innominate mobs; STM to QL, ES, glutes, TFL, hip flexors & quads (focus on right quad add knee flexion to hip flexor stretch edge of bed to HEP if jovani well in clinic )
--- NOTE | 2023-12-30 16:27 | PT.OTN ---
Current Diagnoses Other chronic pain (12/30/23) Dorsalgia, unspecified (12/30/23) Difficulty in walking, not elsewhere classified (12/30/23) Abnormal posture (12/30/23) Weakness (12/30/23) Physical Therapy Treatment Note PT-OP-A Visit Information Start: 10/26/23 10:52 Freq: Status: Active Protocol: Document 12/30/23 12:57 AB (Rec: 12/30/23 16:23 AB [id number]) Out-Patient Physical Therapy Visit Information Visit Information Visit Type Treatment Note Visit Note 03/19 : [id number] Visit Start Time 15:18 Visit Stop Time 16:00 Visit Number 6 Number of EMBEDDED FIRMWARE DEVELOPER Visits 1 PT-OP-B Current Condition Start: 10/26/23 10:52 Freq: Status: Active Protocol: Document 11/07/23 16:49 [facility] (Rec: 11/07/23 18:23 [facility] [id number]) Current Condition History of Current Condition History of Current Condition Pt reports she is having pain down legs and in back. She had a MRI recently that showed some stenosis and nerve impingment. She had one back surgery 27 years ago and another 12-15 years ago. She reports they were never had fusions. She doesn't remember what the surgeries were except to dec the stenosis. Pt report no hx of back injury. thinks may be partially hereditary. Pt reports she has been having a tingling feeling in R leg starting from R buttocks and goes into ant leg down to toes. Pt reports sliding down icy steps and fell Sep 2022. tingling and back pain has gotten worse in past 5-6 months. It keeps gradually getting worse. 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 Haven 't been able to work as much and only doing 3 days a week d /t pain. Typically works >40 hours a week. Can hardly walk down the street w/o cane. Prior to this flare up, was walking a couple miles most days. They are looking at doing surgery andbut pt wants to try PT first. Pt has had shots in the past in back but it hasn't really helped (that was prior to last surgery). Pt reports on days off, lays on L side to dec pain. Has gained weight past 2 years since loss of . Prior Treatments and Tests Xray:IMPRESSION: Multilevel degenerative changes of the lumbar spine as described above, most severe at L5-S1. Multilevel anterolisthesis. Treatment Goals Patient/Caregiver Goals Be able to walk again (go for walks, walk 2 blocks to work, do work); be able to work 40 hours a week as needed PT-OP-C Subjective Start: 10/26/23 10:52 Freq: Status: Active Protocol: Document 12/30/23 12:57 AB (Rec: 12/30/23 16:23 AB [id number]) OP-PT Subjective Patient Comments Patient Comments Patient reports she is better, reports she does not have constant pain today. PT-OP-D Balance Start: 10/26/23 10:52 Freq: Status: Active Protocol: Document 11/07/23 16:49 [facility] (Rec: 11/07/23 18:23 [facility] [id number]) Balance Tests Single Limb Standing Single Limb- Right unable to stand on RLE PT-OP-F Manual Assessment Start: 10/26/23 10:52 Freq: Status: Active Protocol: Document 11/07/23 16:49 [facility] (Rec: 11/07/23 18:23 [facility] [id number]) Manual Assessments Soft Tissue Assessment Soft Tissue Mobility Assessment R>L QL tightness & glute tightness PT-OP-J Posture/Palpation/Skin Start: 10/26/23 10:52 Freq: Status: Active Protocol: Document 11/07/23 16:49 [facility] (Rec: 11/07/23 18:23 [facility] [id number]) Posture Evaluation Comments Posture Comments rotated L; R pelvic shear, fwd flexed torso, inc kyphosis, genu recurvatum B, R iliac crest higher, equal greater trochanters PT-OP-K Range of Motion Start: 10/26/23 10:52 Freq: Status: Active Protocol: Document 11/07/23 16:49 [facility] (Rec: 11/07/23 18:23 [facility] [id number]) Lumbar Spine Range of Motion Lumbar Spine Active Percentage Flexion 5 Extension 5 Rotation Left 40 Rotation Right 40 Lateral Flexion Left 60 Lateral Flexion Right 40 Comments pain R SB & w/rot-goes down leg; pain ext PT-OP-L Special Tests Start: 10/26/23 10:52 Freq: Status: Active Protocol: Document 11/07/23 16:49 [facility] (Rec: 11/07/23 18:23 [facility] [id number]) Special Tests Lumbar Spine Special Tests Straight Leg Raise Test Results R mild tension Slump Test Results R positive Jose Miguel Test Results B positive R>L PT-OP-M Strength Start: 10/26/23 10:52 Freq: Status: Active Protocol: Document 11/07/23 16:49 [facility] (Rec: 11/07/23 18:23 [facility] [id number]) Hip Strength Hip Manual Muscle Testing Right Flexion (L2) 4- Good- External Rotation 3+ Fair+ Internal Rotation 3+ Fair+ Left Flexion (L2) 4 Good External Rotation 3+ Fair+ Internal Rotation 4- Good- Knee Strength Knee Manual Muscle Testing Right Extension (L3) 5 Normal Left Extension (L3) 5 Normal Ankle/Foot Strength Ankle and Foot Manual Muscle Testing Right Dorsiflexion (L4) 4+ Good+ Plantarflexion (S1) 4+ Good+ Left Dorsiflexion (L4) 5 Normal Plantarflexion (S1) 5 Normal Comments PF tested seated B PT-OP-Q Treatments Start: 10/26/23 10:52 Freq: Status: Active Protocol: Document 12/30/23 12:57 AB (Rec: 12/30/23 16:23 AB [id number]) Therapeutic Exercises Supine Exercises hip flexor stretch edge of bed Supine Exercise Name from hooklying Reps/Minutes 60 seconds Comments with AROM knee flexon right LE , VC for breathing from diaphragm isometric Supine Exercise Name SL flex isometric Side bilateral Reps/Minutes x30 sec ea Comments min cues Sitting Exercises seated hip abduction with band Side bilateral Equipment Used light blue band Reps/Minutes one one minute hold then X 16 without hold Comments Pt ed rationale of one minute hold for activation Standing Exercises mini squat with band Side bilateral Resistance level one light blue band Reps/Minutes 2 Comments not jovani, right hip pain with return to fully upright sit to stand with band Side bilateral Resistance light blue level one band Reps/Minutes 1 Comments not jovani standing hip extension Side bilateral Reps/Minutes X15 Comments leaning over mat at counter height, verbal and visual cues Therapeutic Activity Therapeutic Activity log roll Comments Verbal cues to scoot back in sitting, transfer to sidelying and rest a moment prior to rolling. Verbal cues to roll fully onto side prior to sitting upright. Performed throughout session during transitions. Manual Therapy Treatment Soft Tissue Mobilization right quad Body Location areas of increased density decreased tissue mobility Mobilization Type Cross-Friction,Rolling Intensity/Depth Moderate Body Position Hooklying bilateral hip flexors at groin Mobilization Type Cross-Friction Intensity/Depth Moderate Body Position Hooklying bilateral gluteal muscles/piriformis Mobilization Type Cross-Friction,Rolling Intensity/Depth Moderate Body Position Sidelying glutes Body Location R sup Mobilization Type Rolling Intensity/Depth Moderate Body Position Sidelying hip flexor Body Location R iliacus Mobilization Type Sustained Pressure Intensity/Depth Moderate Body Position Supine Manual Techniques MET for right AI left PI and pubic shotgun Body Location SI Body Position Hooklying Reps/Duration 6X6 seconds each Comments verbal cues and assist Self-Care/Home Management Treatment Activities Self-Care/Home Management Activities hip extension AROM leaning over plinth and seated hip abduction with band with one minute hold added to HEP PT-OP-R Modalities Start: 10/26/23 10:52 Freq: Status: Active Protocol: Document 12/15/23 13:52 [facility] (Rec: 12/15/23 17:49 [facility] [id number]) Hot Pack/Cold Pack Treatment Hot Pack Location lumbar/ R hip Patient Position Sidelying Patient Tolerance Good PT-OP-T Assessment and Plan Start: 10/26/23 10:52 Freq: Status: Active Protocol: Document 12/30/23 12:57 AB (Rec: 12/30/23 16:23 AB [id number]) Physical Therapy Assessment Goals ROM Short Term Goal (STG) Pt will report no inc difficulty/pain w/donning/ doffing shoes and socks 12/09/23: Pt reports no difficulty putting on shoes/ socks STG Duration 12/23/23 - GOAL MET 12/09/23 Detention Goal (LTG) Pt will have at least 75% of full range of Lumbar spine mobility in order to allow greater ease in daily activityw/o inc pain LTG Duration 01/30/24 strength Short Term Goal (STG) pt will be indep w/HEP STG Duration 12/20/23 Detention Goal (LTG) pt will score at least 4+/5 on all BLE LE MMT and at least 3 /5 on LPM and be able to do SLS for at least 10 sec B to show improved stability to inc ease w/work and ADLs. LTG Duration 01/30/24 activities Short Term Goal (STG) Pt will be able to sit as needed and stand as needed w/o inc pain greater than 3/10 STG Duration 12/10/23 Tool And Die Manager Goal (LTG) Pt will be able to work 40 hours as needed and be able to walk for 1 mile w/o inc pain greater than 2/10. 12/09/23: Pt uses SPC to walk to /from work 2.5 blocks as weather permits without increased pain, but unable to walk 1 mi. LTG Duration 01/30/24 SALOMÓN Impairment 23/50 Short Term Goal (STG) Pt will improve SALOMÓN score to no greater than 16/50 to show improved functional ability. STG Duration 12/10/23 Detention Goal (LTG) Pt will improve SALOMÓN score to no greater than 6/50 to show improved functional ability. LTG Duration 01/30/24 Assessment Summary Assessment Dominique reports pain is the same end of session ambulating out of session with SPC. Right LE stiffness likely limiting jovani to sit to stand and squats. Physical Therapy Plan Frequency and Duration Frequency of Treatment 1-2x/wk Duration of treatment (weeks) 12 Plan of Care Start Date 11/07/23 Plan of Care End Date 01/30/24 Next Visit Focus/Plan Next Note Type Treatment Note Next Visit Plan Avoid rolling pin d/t pt inc pain; advance core work, try hip stretches manual: coccyx mobs, hip mobs, innominate mobs; STM to QL, ES, glutes, TFL, hip flexors & quads (focus on right quad add knee flexion to hip flexor stretch edge of bed to HEP if jovani well in clinic )
--- NOTE | 2024-01-06 17:14 | PT.OTN ---
Current Diagnoses Other chronic pain (01/06/24) Dorsalgia, unspecified (01/06/24) Difficulty in walking, not elsewhere classified (01/06/24) Abnormal posture (01/06/24) Weakness (01/06/24) Physical Therapy Treatment Note PT-OP-A Visit Information Start: 10/26/23 10:52 Freq: Status: Active Protocol: Document 01/06/24 13:19 NB (Rec: 01/06/24 14:38 [facility] [id number]) Out-Patient Physical Therapy Visit Information Visit Information Visit Type Treatment Note Visit Note 04/18 Visit Start Time 13:45 Visit Stop Time 14:35 Visit Number 7 Number of MANAGER LSW Visits 2 PT-OP-B Current Condition Start: 10/26/23 10:52 Freq: Status: Active Protocol: Document 11/07/23 16:49 [facility] (Rec: 11/07/23 18:23 [facility] [id number]) Current Condition History of Current Condition History of Current Condition Pt reports she is having pain down legs and in back. She had a MRI recently that showed some stenosis and nerve impingment. She had one back surgery 27 years ago and another 12-15 years ago. She reports they were never had fusions. She doesn't remember what the surgeries were except to dec the stenosis. Pt report no hx of back injury. thinks may be partially hereditary. Pt reports she has been having a tingling feeling in R leg starting from R buttocks and goes into ant leg down to toes. Pt reports sliding down icy steps and fell Sep 2022. tingling and back pain has gotten worse in past 5-6 months. It keeps gradually getting worse. 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 Haven 't been able to work as much and only doing 3 days a week d /t pain. Typically works >40 hours a week. Can hardly walk down the street w/o cane. Prior to this flare up, was walking a couple miles most days. They are looking at doing surgery andbut pt wants to try PT first. Pt has had shots in the past in back but it hasn't really helped (that was prior to last surgery). Pt reports on days off, lays on L side to dec pain. Has gained weight past 2 years since loss of . Prior Treatments and Tests Xray:IMPRESSION: Multilevel degenerative changes of the lumbar spine as described above, most severe at L5-S1. Multilevel anterolisthesis. Treatment Goals Patient/Caregiver Goals Be able to walk again (go for walks, walk 2 blocks to work, do work); be able to work 40 hours a week as needed PT-OP-C Subjective Start: 10/26/23 10:52 Freq: Status: Active Protocol: Document 01/06/24 13:19 [facility] (Rec: 01/06/24 14:38 [facility] [id number]) OP-PT Subjective Patient Comments Patient Comments Dominique reports no pain today, but in general pain tends to be on R and stiffness on L leg . I think the stretches are helping for sure. Pt arrives w / cane. She bumped something using the bathroom in the middle of the night a few nights ago and has a bruise on R forearm - I'm not as steady. Every week after workday her R hip hurts but ice helps. PT-OP-D Balance Start: 10/26/23 10:52 Freq: Status: Active Protocol: Document 11/07/23 16:49 [facility] (Rec: 11/07/23 18:23 [facility] [id number]) Balance Tests Single Limb Standing Single Limb- Right unable to stand on RLE PT-OP-F Manual Assessment Start: 10/26/23 10:52 Freq: Status: Active Protocol: Document 11/07/23 16:49 [facility] (Rec: 11/07/23 18:23 [facility] [id number]) Manual Assessments Soft Tissue Assessment Soft Tissue Mobility Assessment R>L QL tightness & glute tightness PT-OP-J Posture/Palpation/Skin Start: 10/26/23 10:52 Freq: Status: Active Protocol: Document 11/07/23 16:49 [facility] (Rec: 11/07/23 18:23 [facility] [id number]) Posture Evaluation Comments Posture Comments rotated L; R pelvic shear, fwd flexed torso, inc kyphosis, genu recurvatum B, R iliac crest higher, equal greater trochanters PT-OP-K Range of Motion Start: 10/26/23 10:52 Freq: Status: Active Protocol: Document 11/07/23 16:49 [facility] (Rec: 11/07/23 18:23 [facility] [id number]) Lumbar Spine Range of Motion Lumbar Spine Active Percentage Flexion 5 Extension 5 Rotation Left 40 Rotation Right 40 Lateral Flexion Left 60 Lateral Flexion Right 40 Comments pain R SB & w/rot-goes down leg; pain ext PT-OP-L Special Tests Start: 10/26/23 10:52 Freq: Status: Active Protocol: Document 11/07/23 16:49 [facility] (Rec: 11/07/23 18:23 [facility] [id number]) Special Tests Lumbar Spine Special Tests Straight Leg Raise Test Results R mild tension Slump Test Results R positive Jose Miguel Test Results B positive R>L PT-OP-M Strength Start: 10/26/23 10:52 Freq: Status: Active Protocol: Document 11/07/23 16:49 [facility] (Rec: 11/07/23 18:23 [facility] [id number]) Hip Strength Hip Manual Muscle Testing Right Flexion (L2) 4- Good- External Rotation 3+ Fair+ Internal Rotation 3+ Fair+ Left Flexion (L2) 4 Good External Rotation 3+ Fair+ Internal Rotation 4- Good- Knee Strength Knee Manual Muscle Testing Right Extension (L3) 5 Normal Left Extension (L3) 5 Normal Ankle/Foot Strength Ankle and Foot Manual Muscle Testing Right Dorsiflexion (L4) 4+ Good+ Plantarflexion (S1) 4+ Good+ Left Dorsiflexion (L4) 5 Normal Plantarflexion (S1) 5 Normal Comments PF tested seated B PT-OP-Q Treatments Start: 10/26/23 10:52 Freq: Status: Active Protocol: Document 01/06/24 13:19 [facility] (Rec: 01/06/24 14:38 [facility] [id number]) Therapeutic Exercises Supine Exercises pelvic tilts Supine Exercise Name 1. w/TrA 2. BKFO 3. december Reps/Minutes x15 ea Comments tactile cues for PPT w/ december. TrA most challenged w/ LLE movement. stretch Supine Exercise Name 1.jose miguel test (knee to chest, opp knee straight) 2. HS 3. ITB Side bilateral Equipment Used strap for HS and ITB Reps/Minutes 1 min ea Comments grasp back of thigh instead of knee sciatic n glide Side bilateral Reps/Minutes x15 Sidelying Exercises reverse clamshells Side bilateral Equipment Used pillow support for LE alignment Reps/Minutes x15 ea Comments vc for eccentric control on L clamshells Sidelying Exercise Name 1. wo band 2. w/ band Side bilateral Resistance Lvl 1 Tb Equipment Used pillow support for LE alignment Reps/Minutes x15 ea Comments min cues for pelvis and breath Manual Therapy Treatment Soft Tissue Mobilization right quad Body Location areas of increased density decreased tissue mobility Mobilization Type Cross-Friction,Rolling Intensity/Depth Moderate Body Position Hooklying bilateral gluteal muscles/piriformis Mobilization Type Cross-Friction,Rolling Intensity/Depth Moderate Body Position Sidelying lumbar Body Location B ES, R QL Mobilization Type Rolling Intensity/Depth Moderate Body Position Sidelying PT-OP-R Modalities Start: 10/26/23 10:52 Freq: Status: Active Protocol: Document 12/15/23 13:52 [facility] (Rec: 12/15/23 17:49 [facility] [id number]) Hot Pack/Cold Pack Treatment Hot Pack Location lumbar/ R hip Patient Position Sidelying Patient Tolerance Good PT-OP-T Assessment and Plan Start: 10/26/23 10:52 Freq: Status: Active Protocol: Document 01/06/24 13:19 NB (Rec: 01/06/24 14:38 [facility] [id number]) Physical Therapy Assessment Goals ROM Short Term Goal (STG) Pt will report no inc difficulty/pain w/donning/ doffing shoes and socks 12/09/23: Pt reports no difficulty putting on shoes/ socks STG Duration 12/23/23 - GOAL MET 12/09/23 Longterm Goal (LTG) Pt will have at least 75% of full range of Lumbar spine mobility in order to allow greater ease in daily activityw/o inc pain LTG Duration 01/30/24 strength Short Term Goal (STG) pt will be indep w/HEP STG Duration 12/20/23 Crime Victim Specialist Goal (LTG) pt will score at least 4+/5 on all BLE LE MMT and at least 3 /5 on LPM and be able to do SLS for at least 10 sec B to show improved stability to inc ease w/work and ADLs. LTG Duration 01/30/24 activities Short Term Goal (STG) Pt will be able to sit as needed and stand as needed w/o inc pain greater than 3/10 STG Duration 12/10/23 Crime Victim Specialist Goal (LTG) Pt will be able to work 40 hours as needed and be able to walk for 1 mile w/o inc pain greater than 2/10. 12/09/23: Pt uses SPC to walk to /from work 2.5 blocks as weather permits without increased pain, but unable to walk 1 mi. LTG Duration 01/30/24 SALOMÓN Impairment 23/50 Short Term Goal (STG) Pt will improve SALOMÓN score to no greater than 16/50 to show improved functional ability. STG Duration 12/10/23 Crime Victim Specialist Goal (LTG) Pt will improve SALOMÓN score to no greater than 6/50 to show improved functional ability. LTG Duration 01/30/24 Assessment Summary Assessment Pt presents w/ SPC and no pain start or end of session. Treatment focus on advancing core and hip stretches. Dominique requires tactile cues for PPT w/ march. TrA activation and PPT is most challenged w/ LLE movement. Occasional cues for breath. Positive feedback response to HS and ITB. RLE tingling after ITB stretch resolves w/ cues for gentle posterior pelvic tilts w/ TrA activation and pt is reminded to use PPT and TrA w/ ITB stretching as well. Physical Therapy Plan Frequency and Duration Frequency of Treatment 1-2x/wk Duration of treatment (weeks) 12 Plan of Care Start Date 11/07/23 Plan of Care End Date 01/30/24 Therapeutic Interventions Therapeutic Interventions Balance Training,Gait Training ,Home Exercise Program,Joint Mobilizations,Manual Therapy, Neuromuscular Re-education, Orthotic/Prosthetic Management ,Patient/Caregiver Education, Self-Care/Home Management,Soft Tissue Mobilization,Taping, Therapeutic Activities, Therapeutic Exercises Modalities Cold Pack/Ice Massage,Electric Stimulation,Hot Packs, Traction- Mechanical, Ultrasound Next Visit Focus/Plan Next Note Type Treatment Note Next Visit Plan Avoid rolling pin d/t pt inc pain; advance core work, try hip stretches manual: coccyx mobs, hip mobs, innominate mobs; STM to QL, ES, glutes, TFL, hip flexors & quads (focus on right quad add knee flexion to hip flexor stretch edge of bed to HEP if jovani well in clinic )
--- NOTE | 2024-02-01 10:37 | PT.OPDS ---
Current Diagnoses Other chronic pain (01/06/24) Dorsalgia, unspecified (01/06/24) Difficulty in walking, not elsewhere classified (01/06/24) Abnormal posture (01/06/24) Weakness (01/06/24) Visit Care Team Role Provider Type Tomy Osborne MD Attending Provider Physician Family Provider Primary Care Provider Referring Provider Specialty: Family Practice Obstetrics Address: [address] [place] [address], [facility] Email: [email or web address] Visit Number Visit Number 7 Discharge Summary PT-OP-B Current Condition Start: 10/26/23 10:52 Freq: Status: Active Protocol: Document 11/07/23 16:49 [facility] (Rec: 11/07/23 18:23 [facility] [id number]) Current Condition History of Current Condition History of Current Condition Pt reports she is having pain down legs and in back. She had a MRI recently that showed some stenosis and nerve impingment. She had one back surgery 27 years ago and another 12-15 years ago. She reports they were never had fusions. She doesn't remember what the surgeries were except to dec the stenosis. Pt report no hx of back injury. thinks may be partially hereditary. Pt reports she has been having a tingling feeling in R leg starting from R buttocks and goes into ant leg down to toes. Pt reports sliding down icy steps and fell Sep 2022. tingling and back pain has gotten worse in past 5-6 months. It keeps gradually getting worse. 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 Haven 't been able to work as much and only doing 3 days a week d /t pain. Typically works >40 hours a week. Can hardly walk down the street w/o cane. Prior to this flare up, was walking a couple miles most days. They are looking at doing surgery andbut pt wants to try PT first. Pt has had shots in the past in back but it hasn't really helped (that was prior to last surgery). Pt reports on days off, lays on L side to dec pain. Has gained weight past 2 years since loss of . Prior Treatments and Tests Xray:IMPRESSION: Multilevel degenerative changes of the lumbar spine as described above, most severe at L5-S1. Multilevel anterolisthesis. Treatment Goals Patient/Caregiver Goals Be able to walk again (go for walks, walk 2 blocks to work, do work); be able to work 40 hours a week as needed PT-OP-C Subjective Start: 10/26/23 10:52 Freq: Status: Active Protocol: Document 01/06/24 13:19 [facility] (Rec: 01/06/24 14:38 [facility] [id number]) OP-PT Subjective Patient Comments Patient Comments Dominique reports no pain today, but in general pain tends to be on R and stiffness on L leg . I think the stretches are helping for sure. Pt arrives w / cane. She bumped something using the bathroom in the middle of the night a few nights ago and has a bruise on R forearm - I'm not as steady. Every week after workday her R hip hurts but ice helps. PT-OP-D Balance Start: 10/26/23 10:52 Freq: Status: Active Protocol: Document 11/07/23 16:49 [facility] (Rec: 11/07/23 18:23 [facility] [id number]) Balance Tests Single Limb Standing Single Limb- Right unable to stand on RLE PT-OP-F Manual Assessment Start: 10/26/23 10:52 Freq: Status: Active Protocol: Document 11/07/23 16:49 [facility] (Rec: 11/07/23 18:23 [facility] [id number]) Manual Assessments Soft Tissue Assessment Soft Tissue Mobility Assessment R>L QL tightness & glute tightness PT-OP-J Posture/Palpation/Skin Start: 10/26/23 10:52 Freq: Status: Active Protocol: Document 11/07/23 16:49 [facility] (Rec: 11/07/23 18:23 [facility] [id number]) Posture Evaluation Comments Posture Comments rotated L; R pelvic shear, fwd flexed torso, inc kyphosis, genu recurvatum B, R iliac crest higher, equal greater trochanters PT-OP-K Range of Motion Start: 10/26/23 10:52 Freq: Status: Active Protocol: Document 11/07/23 16:49 [facility] (Rec: 11/07/23 18:23 [facility] [id number]) Lumbar Spine Range of Motion Lumbar Spine Active Percentage Flexion 5 Extension 5 Rotation Left 40 Rotation Right 40 Lateral Flexion Left 60 Lateral Flexion Right 40 Comments pain R SB & w/rot-goes down leg; pain ext PT-OP-L Special Tests Start: 10/26/23 10:52 Freq: Status: Active Protocol: Document 11/07/23 16:49 [facility] (Rec: 11/07/23 18:23 [facility] [id number]) Special Tests Lumbar Spine Special Tests Straight Leg Raise Test Results R mild tension Slump Test Results R positive Jose Miguel Test Results B positive R>L PT-OP-M Strength Start: 10/26/23 10:52 Freq: Status: Active Protocol: Document 11/07/23 16:49 [facility] (Rec: 11/07/23 18:23 [facility] [id number]) Hip Strength Hip Manual Muscle Testing Right Flexion (L2) 4- Good- External Rotation 3+ Fair+ Internal Rotation 3+ Fair+ Left Flexion (L2) 4 Good External Rotation 3+ Fair+ Internal Rotation 4- Good- Knee Strength Knee Manual Muscle Testing Right Extension (L3) 5 Normal Left Extension (L3) 5 Normal Ankle/Foot Strength Ankle and Foot Manual Muscle Testing Right Dorsiflexion (L4) 4+ Good+ Plantarflexion (S1) 4+ Good+ Left Dorsiflexion (L4) 5 Normal Plantarflexion (S1) 5 Normal Comments PF tested seated B PT-OP-T Assessment and Plan Start: 10/26/23 10:52 Freq: Status: Active Protocol: Document 02/01/24 10:36 [facility] (Rec: 02/01/24 10:37 [facility] [id number]) Physical Therapy Assessment Goals ROM Short Term Goal (STG) Pt will report no inc difficulty/pain w/donning/ doffing shoes and socks 12/09/23: Pt reports no difficulty putting on shoes/ socks STG Duration 12/23/23 - GOAL MET 12/09/23 [facility] Goal (LTG) Pt will have at least 75% of full range of Lumbar spine mobility in order to allow greater ease in daily activityw/o inc pain LTG Duration 01/30/24 strength Short Term Goal (STG) pt will be indep w/HEP STG Duration 12/20/23 Last [facility] Goal (LTG) pt will score at least 4+/5 on all BLE LE MMT and at least 3 /5 on LPM and be able to do SLS for at least 10 sec B to show improved stability to inc ease w/work and ADLs. LTG Duration 01/30/24 activities Short Term Goal (STG) Pt will be able to sit as needed and stand as needed w/o inc pain greater than 3/10 STG Duration 12/10/23 [facility] Goal (LTG) Pt will be able to work 40 hours as needed and be able to walk for 1 mile w/o inc pain greater than 2/10. 12/09/23: Pt uses SPC to walk to /from work 2.5 blocks as weather permits without increased pain, but unable to walk 1 mi. LTG Duration 01/30/24 SALOMÓN Impairment 23/50 Short Term Goal (STG) Pt will improve SALOMÓN score to no greater than 16/50 to show improved functional ability. STG Duration 12/10/23 [facility] Goal (LTG) Pt will improve SALOMÓN score to no greater than 6/50 to show improved functional ability. LTG Duration 01/30/24 Assessment Summary Assessment Pt called to cancel as she can not continue PT due to serious illness. She was seen for 7 visits where she did improve w/fluidity of transferrs. DC d/t change in medical status Physical Therapy Plan Discharge Physical Therapy Discharge Reasons Change in Medical Status
== END 2024-03-12 14:35 | disposition home or self-care (01) ==
LOC: PHYS 13:45
PROVIDERS: Family Provider Family Medicine; PCP Family Medicine; Referring Provider Family Medicine; Visit Provider Family Medicine
DX: M54.9 Dorsalgia, unspecified (principal); G89.29 Other chronic pain; R53.1 Weakness; R26.2 Difficulty in walking, not elsewhere classified; R29.3 Abnormal posture
CPT/HCPCS: 97110; 97140; 97162; 97530; 97535

== ENCOUNTER 2024-03-09 15:11 | Emergency (ER) | payer OTHER, SELFPAY ==
[2024-03-09 15:20] VITALS: BP 100/58; PULSE 82; RESP 16; TEMP 36.6; O2SAT 94; BMI 33.4
[2024-03-09 15:49] LABS: Add Manual Diff / Slide Review NO; Basophils Absolute Auto 100 /uL (0-100); Basophils Percent Auto 0.4 % (0-2); Eosinophils Absolute Auto 100 /uL (0-450); Eosinophils Percent Auto 0.4 % (2-4); Hematocrit 38.5 % (36-46); Hemoglobin 12.5 g/dL (12.0-16.0); Lymphocytes Absolute Auto 4600 /uL (1100-4500); Lymphocytes Percent Auto 32.8 % (25-40); Mean Corpuscular HGB Conc 32.5 % (30-36); Mean Corpuscular Hemoglobin 27.5 PG (26-34); Mean Corpuscular Volume 84.5 fL (80-100); Monocytes Absolute Auto 900 /uL (0-900); Monocytes Percent Auto 6.6 % (3-14); Neutrophils Absolute Auto 8300 /uL (1500-7000); Neutrophils Percent Auto 59.8 % (50-75); Platelet Count 299 X10^3/uL (150-400); Red Blood Cell Count 4.56 X10^6/uL (4.0-5.2); Red Cell Distribution Width 14.8 % (11.6-14.8); White Blood Cell Count 13.9 X10^3/uL (4.5-11.0)
[2024-03-09 15:59] LABS: Alanine Aminotransferase 21 IU/L (<35); Albumin 3.8 g/dL (3.5-5.0); Albumin Globulin Ratio 1.2 (1.0-2.8); Alkaline Phosphatase 139 U/L (38-126); Aspartate Aminotransferase 24 IU/L (14-36); BUN Creatinine Ratio 33.7 (6-22); Bilirubin Total 0.6 mg/dL (0.2-1.3); Blood Urea Nitrogen 29 mg/dL (7-17); Calcium 8.5 mg/dL (8.4-10.2); Carbon Dioxide 21 mmol/L (22-32); Chloride 96 mmol/L (98-107); Estimated Glomerular Filt Rate > 60 mL/min (>60); Globulin 3.2 g/dL (1.7-4.1); HEMOLYSIS < 15 (0-50); Lipase 356 U/L (23-300); Potassium 5.1 mmol/L (3.4-5.1); Sodium 125 mmol/L (137-145)
[2024-03-09 16:31] LABS: Glucose 803 mg/dL (80-110)
[2024-03-09 16:38] LABS: Bacteria Urine Few (2-10); Culture Indicated Urine Specimen Cultured; RBC Urine None Seen (0-5/HPF); Squamous Epithelial Cell Urine None Seen (0-5/HPF); Urine Volume 10mL (spun); WBC Urine 5-10/HPF (0-5/HPF)
[2024-03-09] MEDS: SODIUM CHLORIDE 0.9% 1,000 ML 1000 ML IV ×2 (17:18→18:46)
[2024-03-09 17:20] VITALS: PULSE 72; RESP 27; O2SAT 98
[2024-03-09 17:21] VITALS: BP 130/62; PULSE 70; RESP 22; O2SAT 97
[2024-03-09 17:30] VITALS: BP 106/59; PULSE 66; RESP 27; O2SAT 95
[2024-03-09 18:00] VITALS: BP 117/58; PULSE 64; RESP 28; O2SAT 93
[2024-03-09 18:14] LABS: PO2 VBG 18 mmHg (35-45); pH VBG 7.46 (7.33-7.43)
[2024-03-09 18:15] LABS: Fractionated Inspired Oxygen 21; HCO3 VBG 25 mmol/L (24-28); Oxygen Saturation VBG 30 % (70-75); Total CO2 VBG 26 mmol/L (24-29)
--- NOTE | 2024-03-09 18:20 | ED.GENADULT ---
HPI - General Adult General Chief complaint: Diabetic Problem Stated complaint: sent by dr for fluids, dehydrated, blood glucose Time Seen by Provider: 03/09/24 16:49 History of Present Illness HPI narrative: 74-year-old female presents for elevated blood glucose taken on outside labs. Patient was diagnosed with glioblastoma earlier in the year. In early January she underwent resection with neurosurgery. Prior to resection patient was on high-intensity steroids. Patient was currently receiving radiation and oral chemo for her glioblastoma. As part of her treatment her doctor ordered laboratory work. Patient received a call today stating that her blood sugar was very elevated that she needed to come to the ER for treatment. Patient states that she was overall had a very dry mouth recently, but otherwise feels in her usual state of health. Related Data Home Medications Medication Instructions Recorded Confirmed amlodipine 5 mg tablet 5 mg PO DAILY 01/13/24 01/13/24 dexamethasone 4 mg tablet mg PO 01/13/24 01/13/24 famotidine 20 mg tablet 20 mg PO BID 01/13/24 01/13/24 lisinopril 20 mg tablet 20 mg PO DAILY 01/13/24 01/13/24 Previous Rx's Medication Instructions Recorded meloxicam 15 mg tablet 15 mg PO DAILY #90 tabs 07/06/23 Disabled Parking See Rx Instructions .Route 01/13/24 .COMPLEX #365 days fluoxetine 40 mg capsule 40 mg PO DAILY #90 caps 01/13/24 fluconazole 100 mg tablet 100 mg PO DAILY #2 tabs 03/08/24 (Diflucan) metformin 500 mg tablet 500 mg PO DAILY #60 tabs 03/09/24 Allergies Allergy/AdvReac Type Severity Reaction Status Date / Time No Known Drug Allergies Allergy Verified 01/13/24 12:53 Review of Systems Review of Systems Narrative: See HPI Patient History Medical History Hearing decreased Allergies Shoulder pain Chronic back pain Carpal tunnel syndrome Mumps Chicken pox Tinnitus Ovarian cyst Hemorrhoid Depression Surgical History Hx of craniotomy (01/27/24) Anesthesia History of carpal tunnel release History of oophorectomy History of back surgery History of basal cell carcinoma Family History Father History of heart disease Mother Cancer Social History Smoking Status: Never smoker alcohol intake: current Smoking Status: Never smoker alcohol intake frequency: a few times a month Substance Use Type: does not use Exam Initial Vital Signs Initial Vital Signs: Vital Signs Temperature 97.9 F 03/09/24 15:20 Pulse Rate 82 03/09/24 15:20 Respiratory Rate 16 03/09/24 15:20 Blood Pressure 100/58 L 03/09/24 15:20 Pulse Oximetry 94 03/09/24 15:20 Oxygen Delivery Method Room Air 03/09/24 15:20 Const: Awake, alert, no acute distress, nontoxic appearing Cardiac: regular rate, regular rhythm RESP: unlabored, clear bilaterally, no wheezing GI: Soft, nontender, nondistended, no rebound, no guarding MSK: Atraumatic, full range of motion, pulses equal Skin: Warm, Dry, intact, no rashes Neuro: AO x3, CN II-XII grossly intact, moves all extremities Course Orders Ordered: Discontinued Medications Sodium Chloride (Normal Saline 0.9%) 1,000 mls @ 1,000 mls/hr IV BOLUS ONE Stop: 03/09/24 17:48 Last Infusion: 03/09/24 18:21 Dose: Infused Documented By: Admin: 03/09/24 17:18 Dose: 1,000 mls/hr Documented By: MAGAN Sodium Chloride (Normal Saline 0.9%) 1,000 mls @ 1,000 mls/hr IV BOLUS ONE Stop: 03/09/24 19:20 Last Infusion: 03/09/24 20:39 Dose: Infused Documented By: Admin: 03/09/24 18:46 Dose: 1,000 mls/hr Documented By: BROOK Insulin Human Regular (Insulin Regular 100 Unit/Ml 3 Ml Vial) 10 unit IV NOW ONE Stop: 03/09/24 18:22 Last Admin: 03/09/24 18:44 Dose: 10 unit Documented By: BROOK Co-signed By: MAGAN Metformin HCl (Metformin Hcl 500 Mg Tablet) 1,000 mg PO NOW ONE Stop: 03/09/24 20:58 Last Admin: 03/09/24 21:23 Dose: 1,000 mg Documented By: JUICE Ondansetron HCl (Ondansetron 4 Mg Odt) 4 mg PO NOW PRN PRN Reason: Nausea And Vomiting Ondansetron HCl (Ondansetron 4 Mg/2 Ml Inj) 4 mg IV NOW PRN PRN Reason: Nausea And Vomiting Vital Signs Vital signs: Vital Signs - 8 hr 03/09/24 21:30 Pulse Rate 67 Respiratory Rate 18 Blood Pressure 163/60 H Pulse Oximetry 100 Oxygen Delivery Method Room Air Medical Decision Making Lab Data 03/09/24 15:42 03/09/24 15:42 Labs: Lab Results 03/09/24 03/09/24 03/09/24 Range/Units 15:42 16:20 17:01 WBC 13.9 H (4.5-11.0) X10^3/uL RBC 4.56 (4.0-5.2) X10^6/uL Hgb 12.5 (12.0-16.0) g/dL Hct 38.5 (36-46) % MCV 84.5 (80-100) fL MCH 27.5 (26-34) PG MCHC 32.5 (30-36) % RDW 14.8 (11.6-14.8) % Plt Count 299 (150-400) X10^3/uL Neut % (Auto) 59.8 (50-75) % Lymph % (Auto) 32.8 (25-40) % Nicholas % (Auto) 6.6 (3-14) % Eos % (Auto) 0.4 L (2-4) % Baso % (Auto) 0.4 (0-2) % Neut # (Auto) 8300 H (3413-5124) /uL Lymph # (Auto) 4600 H (0178-8312) /uL Nicholas # (Auto) 900 (0-900) /uL Eos # (Auto) 100 (0-450) /uL Baso # (Auto) 100 (0-100) /uL VBG pH 7.46 H (7.33-7.43) VBG pCO2 35.0 L (45-50) mmHg VBG pO2 18 L (35-45) mmHg VBG HCO3 25 (24-28) mmol/L VBG Total CO2 26 (24-29) mmol/L VBG O2 Saturation 30 L (70-75) % VBG Base Excess 1.0 (0-4) mmol/L FiO2 21 Sodium 125 L (137-145) mmol/L Potassium 5.1 (3.4-5.1) mmol/L Chloride 96 L (98-107) mmol/L Carbon Dioxide 21 L (22-32) mmol/L BUN 29 H (7-17) mg/dL Creatinine 0.86 (0.52-1.04) mg/dL Estimated GFR > 60 (>60) mL/min BUN/Creatinine Ratio 33.7 H (6-22) Glucose 803 H* (80-110) mg/dL Hemoglobin A1c 12.5 H (4.0-6.0) % Calcium 8.5 (8.4-10.2) mg/dL Total Bilirubin 0.6 (0.2-1.3) mg/dL AST 24 (14-36) IU/L ALT 21 (<35) IU/L Alkaline Phosphatase 139 H (38-126) U/L Total Protein 7.0 (6.3-8.2) g/dL Albumin 3.8 (3.5-5.0) g/dL Globulin 3.2 (1.7-4.1) g/dL Albumin/Globulin Ratio 1.2 (1.0-2.8) Lipase 356 H (23-300) U/L Urine RBC None seen (0-5/HPF) Urine WBC 5-10/hpf H (0-5/HPF) Ur Squamous Epith Cells None seen (0-5/HPF) Urine Bacteria Few (2-10) H (None) Ur Culture Indicated? Specimen cultured Vol Urine Centrifuged 10ml (spun) Point of Care Testing Glucose POC 500 Urine Dip Bedside Urine Glucose 1000 mg/dl Bedside Urine Bilirubin - Negative Bedside Urine Ketone - Negative Urine Specific [place] 1.015 Bedside Urine Occult Blood - Negative Bedside Urine pH 6.0 Bedside Urine Protein - Negative Bedside Urine Urobilinogen - Negative Bedside Urine Nitrite - Negative Bedside Urine Leukocytes +/- 15 Esterase Point of care testing: Point of Care Testing Glucose POC 500 Urine Dip Bedside Urine Glucose 1000 mg/dl Bedside Urine Bilirubin - Negative Bedside Urine Ketone - Negative Urine Specific [place] 1.015 Bedside Urine Occult Blood - Negative Bedside Urine pH 6.0 Bedside Urine Protein - Negative Bedside Urine Urobilinogen - Negative Bedside Urine Nitrite - Negative Bedside Urine Leukocytes +/- 15 Esterase MDM Narrative Medical decision making narrative: Relatively asymptomatic hyperglycemia. Patient reports dry mouth, but no other symptoms. Hemodynamically stable on arrival. Laboratory work ordered. Laboratory work reviewed. Sodium 125, however glucose is 803. When corrected for glucose, sodium is acceptable. Patient was given 2 L of IV fluids and 5 units of insulin. At 1 point when I walked in the room patient was eating peaches, she was advised that pages are high in sugar and she should stick to lower glycemic foods. Patient informed of new diagnosis of diabetes. We will start on metformin. With glucose of 800 patient will likely eventually need to be on insulin. Patient was given her 1st dose of metformin in the emergency department and discharged with a prescription, with instructions on how to gradually increase metformin to maximum dosage. Patient was informed that an A1c will be sent to the lab, however would likely not result tonight and she should follow up with her primary care doctor. The A1c will help her primary care doctor guide further medical management of her diabetes. Patient states up her now used to have diabetes and she was familiar with how to treat this disease. Discharge Plan Departure Patient Disposition: Home Clinical Impression: Acute hyperglycemia Instructions: DI for Diabetes Type 2 Activity Restrictions/Additional Instructions: Your blood sugar was very elevated today, qualifying you for a diagnosis of diabetes. Please follow up with your primary care doctor. Please let him know that an A1c has been sent to our lab for analysis, he will use this information to help guide any further treatment. I am starting you on a drug called metformin, which can help to control your blood sugars. You will also need to follow a low-carbohydrate diet for your elevated blood sugars. Maximum dose of metformin is 2000 mg daily, however I recommend starting at 500 mg daily and slowly increasing in increments of 500 mg as this may cause GI upset when 1st starting this medication. Prescriptions: New metformin 500 mg tablet 500 mg PO DAILY Qty: 60 0RF Rx Instructions: increase dose every week by 500mg to maximum of 2000mg daily No Action meloxicam 15 mg tablet 15 mg PO DAILY Qty: 90 2RF Disabled Parking See Rx Instructions .ROUTE .COMPLEX Qty: 365 0RF Rx Instructions: I find this patient to be medically disabled and qualified for Disabled Parking as indicated and signed on the accompanying Disabled Parking Application for Individuals fluoxetine 40 mg capsule 40 mg PO DAILY Qty: 90 3RF dexamethasone 4 mg tablet PO famotidine 20 mg tablet 20 mg PO BID amlodipine 5 mg tablet 5 mg PO DAILY lisinopril 20 mg tablet 20 mg PO DAILY fluconazole [Diflucan] 100 mg tablet 100 mg PO DAILY Qty: 2 0RF Rx Instructions: Take one tablet by mouth now, and repeat with second tablet in 2 day. Referrals: Tomy Osborne MD [Primary Care Provider] - Stand Alone Forms: Patient Portal/API
[2024-03-09] MEDS: INSULIN REGULAR 100 UNIT/ML 3 ML VIAL 10 UNIT IV (18:44)
[2024-03-09 21:17] LABS: Hemoglobin A1C% w Est Avg Glu 12.5 % (4.0-6.0)
[2024-03-09] MEDS: METFORMIN HCL 500 MG TABLET 1000 MG PO (21:23)
--- NOTE | 2024-03-09 21:29 | PC.NURSE ---
Pt's recheck BS is 422 post IVF admin. Jeffrey SCRUGGS notified.
[2024-03-09 21:30] VITALS: BP 163/60; PULSE 67; RESP 18; O2SAT 100
== END 2024-03-09 21:33 | disposition home or self-care (01) ==
PROVIDERS: Emergency Medicine; Emergency Provider Emergency Medicine; PCP Family Medicine
DX: E11.65 Type 2 diabetes mellitus with hyperglycemia (principal)
CPT/HCPCS: 36415; 80053; 81003; 81015; 82805; 82962; 83036; 83690; 85025; 87077; 87086; 87186; 93005; 96374; 99284